=== PATIENT | female | born 1950 ===

== ENCOUNTER 2016-09-26 17:13 | Emergency (ER) | payer MEDICARE, MEDICAID ==
--- NOTE | 2016-09-26 17:17 | EDM.PDOC ---
ED HPI GENERAL MEDICAL PROBLEM - General Chief Complaint: General Stated Complaint: Cough Time Seen by Provider: 09/26/16 17:15 Source of Information: Reports: Patient, Family (), Old records ([facility] chart/EMR) History Limitations: Reports: No limitations - History of Present Illness INITIAL COMMENTS - FREE TEXT/NARRATIVE: The patient was brought to the emergency room via private automobile by her for evaluation of possible beginning bronchitis, which was diagnosed by her home health nurse shortly prior to evaluation in our facility. She apparently had some right lower lobe rales at time of the home health visit with report not given by nurse to this facility. The patient did take Spiriva and her Proventil inhaler at about 15:00 hours today but no nebulizer therapy today. The patient did have some mild choking when using her Advair inhaler on 09/19 with mild mostly clear productive cough since that time. She denies any fever or known exposure to infection and did get her influenza booster this past season. The patient denies any chest pain/pressure, heart flutter, dizziness, orthostasis, orthopnea, diaphoresis, paresthesias, recent decreased exercise tolerance, or any other anginal-type symptoms. No recent history of abdominal pain, heartburn, nausea, diarrhea, melena, gross hematochezia, or any food intolerance, including fatty foods, etc.. She denies any pain or discomfort Onset: today, sudden Onset Date: 09/19/16 Onset Time: 20:00 Duration: Chronic, Constant, Getting worse Location: Reports: other (No pain) Quality: Reports: Same as previous episode Improves with: Reports: None Worsens with: Reports: None Context: Reports: Other (As above) Associated Symptoms: Reports: cough, cough w sputum. Denies: confusion, chest pain, diaphoresis, fever/chills, headaches, loss of appetite, malaise, nausea/ vomiting, seizure, shortness of breath, syncope, weakness Treatments CLINICAL NURSE: Reports: Other medication(s) (As above). Denies: Aspirin, NSAIDS - Related Data Allergies Allergy/AdvReac Type Severity Reaction Status Date / Time Penicillins Allergy Rash Verified 09/26/16 18:13 Home Meds: Home Meds Tiotropium [Spiriva HandiHaler] 18 mcg INH DAILY@1200 02/04/15 [History] Albuterol [Proair HFA] 2 puff INH Q4HR PRN #1 inhaler 02/08/15 [Rx] Aspirin 81 mg PO BRK tab.chew 02/08/15 [Rx] Escitalopram [Lexapro] 20 mg PO DAILY #30 tablet 03/21/15 [Rx] Calcium Carbonate [Tums Extra Strength] 750 mg PO Q2HR PRN #1 bottle 08/17/15 [ Rx] Docusate Sodium/Sennosides [Senna Plus] 1 tab PO BID@0800,1800 #60 tablet [Rx] Gabapentin [Neurontin] 300 mg PO QID 12/27/15 [History] Magnesium Oxide [Magnesium] 400 mg PO DAILY #100 tablet 12/27/15 [Rx] Metoprolol Succinate [Toprol XL] 12.5 mg PO BID 12/27/15 [History] ClonazePAM [KlonoPIN] 1 mg PO BID 02/25/16 [History] Roflumilast [Daliresp] 500 mcg PO DAILY 02/25/16 [History] Albuterol/Ipratropium [DuoNeb 3.0-0.5 MG/3 ML] 3 ml NEB QID #60 ampule 09/26/16 [Rx] Dextromethorphan/guaiFENesin [Mucinex DM ER 600-30 MG] 1 tab PO BID #30 tab.er 09/26/16 [Rx] Fluticasone/Salmeterol [Advair Diskus 500-50] 1 puff INH BID 09/26/16 [History] Furosemide [Lasix] 20 mg PO DAILY #0 09/26/16 [Rx] Potassium Chloride 20 meq PO DAILY #20 tablet.er 09/26/16 [Rx] Sulfamethoxazole/Trimethoprim [Bactrim Ds Tablet] 1 each PO BIDMEALS #20 tablet 09/26/16 [Rx] Past Medical History HEENT History: Reports: Allergic rhinitis, Impaired vision, Other (see below). Denies: Glaucoma, Hard of hearing, Macular degeneration, Retinal detachment Other HEENT History: Patient wears glasses Cardiovascular History: Reports: Hypertension, Other (see below). Denies: Afib , Aneurysm, Arrhythmia, Blood clots/VTE/DVT, CAD, Heart Failure, Heart murmur, High cholesterol, WA, Syncope Other Cardiovascular History: Hypertension with previous episodes of hypotension , she does not know her cholesterol status Respiratory History: Reports: Bronchitis, recurrent, COPD, Pneumonia, recurrent , Pulmonary fibrosis, Sleep apnea, SOB, Other (see below). Denies: Intubation, previous, PE, Pneumothorax, TB Other Respiratory History: O2 dependent COPD and pulmonary fibrosis with patient using oxygen at 2 liter per N\C on a continuous basis and otherwise States puts oxygen at 3-4 liters per minute by nasal cannula with activity, including when she takes a shower. History of sleep apnea with patient noncompliant with her CPAP. Probable benign pulmonary nodules by CT scan March 2015 Gastrointestinal History: Reports: Chronic constipation, GERD, Hemorrhoids. Denies: Cholelithiasis, Chronic diarrhea, Colon polyp, Diverticulosis, Gastritis , Hepatitis, Hiatal hernia, Inflammatory bowel disease, Pancreatitis, PUD Genitourinary History: Reports: None. Denies: Chronic renal insuffiency, Renal calculus, STD, Urinary incontinence, UTI, recurrent RESPITE WORKER History: Reports: , Spontaneous . Denies: Endometriosis , Fibroids : 5 Para: 3 LMP (Approximate): Menopausal Other OB/BYN History: First trimester SAB with demise delivery secondary to nuchal cord, menopause in her 40s, otherwise Full term without complications during pregnancies or deliveries Musculoskeletal History: Reports: Arthritis, Back pain, chronic, Neck pain, chronic, Osteoarthritis, Osteoporosis. Denies: Fracture, Gout, RA, SLE Neurological History: Reports: Migraines, Neuropathy, peripheral, Other (see below). Denies: Cerebral aneurysms, Concussion, CVA, Head trauma, Seizure, TIA , Vertigo Other Neuro History: Migraine headaches in her younger years however no longer problematic Psychiatric History: Reports: Anxiety, Depression. Denies: Abuse, victim of, ADD, ADHD, Hallucinations, Psych Hospitalization(s), PTSD, Suicide attempt, Suicidal ideation Endocrine/Metabolic History: Reports: Multinodular thyroid, Osteoporosis, Other (see below). Denies: Diabetes, type I, Diabetes, type II, IDDM Other Endocrine/Metabolic History: multiple thyroid nodules with negative thyroid biopsy as below Hematologic History: Reports: Other (see below). Denies: Anemia, B12 deficiency , Blood transfusion(s), Iron deficiency Other Hematologic History: thrombocytopenia, leukopenia Immunologic History: Reports: None. Denies: AIDS, HIV, SLE Oncologic (Cancer) History: Reports: None. Denies: Basal cell carcinoma, Hodgkin's Lymphoma, Leukemia, Malignant melanoma, Non-Hodgkin's Lymphoma, Squamous cell carcinoma Dermatologic History: Reports: None. Denies: Eczema, Psoriasis - Infectious Disease History Infectious Disease History: Reports: Chicken pox. Denies: C-difficile, Measles , MRSA, Mumps, Pertussis (whooping cough), Rheumatic Fever, Rubella, Scarlet fever, Shingles, TB, VRE - Past Surgical History Head Surgeries/Procedures: Reports: None HEENT Surgical History: Reports: Adenoidectomy, Oral surgery, Tonsillectomy, Other (see below). Denies: Cataract surgery, Eye surgery, Laser surgery, LASIK , Myringotomy w tube(s), Naso-sinus surgery Other HEENT Surgeries/Procedures: Tonsillectomy and adenoidectomy at about age 9 , complete teeth extraction Cardiovascular Surgical History: Reports: None. Denies: Varicose, Vascular surgery Respiratory Surgical History: Reports: None. Denies: Lung Biopsies, Thoracentesis GI Surgical History: Reports: None. Denies: Appendectomy, Cholecystectomy, Colonoscopy, EGD, Hernia, abdominal, Hernia, inguinal, Hernia repair/other Female Surgical History: Reports: D&C, Dilitation & evacuation, Other (see below). Denies: Breast biopsy, section, Hysterectomy, Oophorectomy, Tubal ligation Other Female Surgeries/Procedures: D&C with SAB in 1977 Endocrine Surgical History: Reports: Thyroid biopsy, Other (see below) Other Endocrine Surgeries/Procedures: Negative thyroid biopsy in June 2015 Neurological Surgical History: Reports: None. Denies: C-Spine, Laminectomy, Spinal fusion Musculoskeletal Surgical History: Reports: None. Denies: Amputation, Carpal tunnel, Ganglion cyst, Hip replacement, ORIF, Shoulder surgery Oncologic Surgical History: Reports: None. Denies: Biopsy of breast Dermatological Surgical History: Reports: Skin biopsy, Other (see below) Other Dermatological Surgeries/Procedures: Negative skin biopsy of the right auricle in December 2015 - Past Imaging History Past Imaging History: Reports: CAT scan (CT scan of the chest on 03/31/15), PFT (PFTs with diffusion studies on 01/20/15), Ultrasound (Thyroid ultrasound on ) Social & Family History - Family History Cardiac: Reports: CAD, High cholesterol, Hypertension, Other (see below). Denies: WA Other Cardiac Family History: Son with PTCA/stent x6 in his 30s with no history of WA, etc., 2 sons with hyperlipidemia, son with hypertension Respiratory: Reports: COPD, Other (see below) Other Respiratory Family Hisory: Maternal uncles x5, paternal uncles x2, and maternal aunt with COPD and history of tobacco use Psychiatric: Reports: Anxiety, Depression, Other (see below) Other Psychiatric Family History: Anxiety depression disorder in mother Endocrine/Metabolic: Reports: Diabetes, type II, Hyperthyroidism, Hypothyroidism , Other (see below) Other Endocrine/Metabolic Family History: Mother with AODM, sister with hyperthyroidism and subsequent hypothyroidism secondary to high to I-131 therapy Oncologic: Reports: Lung, Metastatic, Other (see below) Other Oncologic Family History: Father with fatal lung cancer including cerebral metastases at age 39 with history of tobacco use - Tobacco Use Smoking Status *Q: Former Smoker Years of Tobacco use: 47 Packs/Tins Daily: 1.5 (With previous maximum use 2 packs per day) Used Tobacco, but Quit: Yes Month Tobacco Last Used: 02/19/15 Smoking Cessation Information Provided To Patient: No Second Hand Smoke Exposure: No Second Hand Smoke Education Provided: No - Caffeine Use Caffeine Use: Reports: Soda (2 sodas per day). Denies: Coffee, Energy drinks, Tea - Alcohol Use Alcohol Use History: Yes Days Per Week of Alcohol Use: 0 (No previous DWIs, problems with alcohol abuse, etc.) Number of Drinks Per Day: 1 (Occasional wine for holidays) Total Drinks Per Week: 0 Alcohol Use in Last Twelve Months: Yes Alcohol Use Frequency: Socially - Recreational Drug Use Recreational Drug Use: No Drug Use in Last 12 Months: No Recreational Drug Type: Denies: Amphetamines (Speed), Cocaine, Heroin, LSD (Acid ), Marijuana/Hashish, Methamphetamine, Morphine Recreational Drug Use Frequency: Daily - Living Situation & Occupation Living situation: Reports: (In 1977, second with 2 children from this marriage), (from first in about 1974, one son from that relationship), alone (She no longer lives with her secondary to finances) 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 Denies: fever, chills, weakness, fatigue , night sweats, diaphoresis, decreased appetite, weight loss, weight gain HEENT: Reports: Glasses, Rhinitis. Denies: Dental pain, Ear pain, Eye pain, Hearing loss, Sinus problem, Throat pain, Throat swelling, Vertigo, Vision change Respiratory: Reports: Cough, Sputum. Denies: Shortness of Breath, Wheezing, Pleuritic Chest Pain, Hemoptysis Cardiovascular: Denies: Chest pain, Blood pressure problem, Claudication, Dyspnea on exertion, Edema, Lightheadedness, Orthopnea, Palpitations, PND, Syncope Endocrine: Reports: no symptoms. Denies: fatigue GI/Abdominal: Reports: No symptoms. Denies: Abdominal pain, Anorexia, Black stool, Bloody stool, Constipation, Diarrhea, Decreased appetite, Difficulty swallowing, Distension, Flatus, Hematochezia, Melena, Nausea, Vomiting : Reports: no symptoms. Denies: discharge, dysuria, flank pain, frequency, hematuria, incontinence, pain, urgency, urinary retention Musculoskeletal: Reports: no symptoms. Denies: neck pain, shoulder pain, arm pain, back pain, leg pain, joint pain, joint swelling Skin: Reports: no symptoms. Denies: diaphoresis, rash Neurological: Reports: No Symptoms. Denies: Confusion, Dizziness, Headache, Numbness, Paresthesia, Tingling, Weakness Psychiatric: Reports: No symptoms. Denies: Agitation, Anxiety, Confusion, Depression, Hallucinations Hematologic/Lymphatic: Reports: no symptoms Immunologic: Reports: no symptoms ED EXAM, GENERAL - Physical Exam Exam: See Below Exam Limited By: No limitations General Appearance: alert, WD/WN, no apparent distress Eye Exam: bilateral eye: EOMI, normal inspection (No nystagmus), PERRL Ears: normal canal, hearing grossly normal, normal TMs, other (3-4 mm skin tag over the superior aspect of the right auricle with no evidence of malignancy or infection) Throat/Mouth: Normal lips, Normal gums, Normal oropharynx, Normal voice, No airway compromise. No: Normal teeth (Absent dentition with complete upper dentures), Dysphagia, Perioral cyanosis Head: atraumatic, normocephalic. No: facial swelling, facial tenderness, sinus tenderness Neck: normal inspection, supple, non-tender, full range of motion. No: lymphadenopathy (L), lymphadenopathy (R), thyromegaly Respiratory/Chest: no respiratory distress, lungs clear, normal breath sounds, no accessory muscle use, chest non-tender. No: pleural rub, retractions Cardiovascular: normal peripheral pulses, regular rate, rhythm, no edema, no gallop, no JVD, no murmur, no rub. No: gallop/S3, gallop/S4, friction rub Peripheral Pulses: 4+: radial (L), radial (R) GI/Abdominal: normal bowel sounds, soft, non tender, no organomegaly, no distention, no abnormal bruit, no mass, other (obese). No: guarding (Female) Exam: Deferred Rectal (Female) Exam: Deferred Back Exam: normal inspection, full range of motion. No: CVA tenderness (L), CVA tenderness (R), muscle spasm Extremities: normal inspection, normal range of motion, non-tender, no pedal edema, normal capillary refill. No: Marietta's Sign Neurological: alert, oriented, CN II-XII intact, normal cognition, normal gait, no motor/sensory deficits Psychiatric: normal affect, normal mood Skin Exam: Warm, Dry, Intact, Normal color, No rash, Tattoo(s) (Multiple). No: Diaphoretic, Rash, Wound/incision Lymphatic: no adenopathy Course - Vital Signs Last Recorded V/S: Last Vital Signs Temp 36.4 C 09/26/16 17:19 Pulse 90 09/26/16 17:19 Resp 18 09/26/16 17:19 BP 140/82 09/26/16 17:19 Pulse Ox 97 09/26/16 17:19 Vital Signs - 24 hr 09/26/16 17:19 Temperature [ 36.4 C Oral] Pulse, 90 Peripheral [ Right Pulse Oximetry] Respiratory 18 Rate Blood Pressure 140/82 [Right Upper Arm] O2 Sat by Pulse 97 Oximetry - Orders/Labs/Meds Orders: Active Orders 24 hr Category Date Time Status Oxygen Therapy, ED [RC] CONTINUOUS Care 09/26/16 17:20 Active RT Aerosol Therapy [RC] ASDIRECTED Care 09/26/16 17:20 Active Chest 2V [CR] Urgent Exams 09/26/16 17:18 Taken CULTURE BLOOD [BC] Stat Lab 09/26/16 17:30 Received CULTURE BLOOD [BC] Stat Lab 09/26/16 17:30 Received CULTURE SPUTUM + SMEAR [RM] Routine Lab 09/26/16 17:30 Received Blood Culture x2 Reflex Set [OM.PC] Urgent Oth 09/26/16 17:18 Ordered Labs: Laboratory Tests 09/26/16 09/26/16 Range/Units 17:30 17:30 WBC 4.6 (4.0-10.2) K/uL RBC 4.12 (3.77-5.09) M/uL Hgb 10.4 L (11.7-15.5) g/dL Hct 36.2 (34.0-46.0) % MCV 87.9 D (84.0-98.0) fL MCH 25.2 L (28.2-33.3) pg MCHC 28.7 L (31.7-36.0) g/dL RDW 14.0 (11.2-14.1) % Plt Count 210 D (150-350) K/uL Neut % (Auto) 63.1 (45.0-80.0) % Lymph % (Auto) 27.2 (10.0-50.0) % Churchill % (Auto) 8.6 (2.0-14.0) % Eos % (Auto) 1.1 (0.0-5.0) % Baso % (Auto) 0.0 (0.0-2.0) % Neut # (Auto) 2.88 (1.40-7.00) K/uL Lymph # (Auto) 1.24 (0.50-3.50) K/uL Churchill # (Auto) 0.39 (0.00-1.00) K/uL Eos # (Auto) 0.05 (0.00-0.50) K/uL Baso # (Auto) 0.00 (0.00-0.20) K/uL Sodium 141 (136-145) mmol/L Potassium 3.4 L (3.5-5.1) mmol/L Chloride 98 (98-107) mmol/L Carbon Dioxide 35.8 H (21.0-32.0) mmol/L BUN 12 (7-18) mg/dL Creatinine 0.70 (0.51-1.17) mg/dL Est Cr Clr Drug Dosing 63.37 mL/min Estimated GFR (MDRD) > 60 mL/min Glucose 134 H (74-106) mg/dL Calcium 9.1 (8.5-10.1) mg/dL Total Bilirubin 0.4 (0.2-1.0) mg/dL AST 28 (15-37) U/L ALT 27 (12-78) U/L Alkaline Phosphatase 105 (46-116) IU/L Creatine Kinase 58 (26-308) U/L Creatine Kinase Index 1.9 (0.0-2.5) % CK-MB (CK-2) 1.10 (0.00-3.60) ng/mL Troponin I 0.000 (0.000-0.056) ng/mL [id number]-Gmunygltvli Pept 43 (0-125) pg/mL Total Protein 7.7 (6.4-8.2) g/dL Albumin 3.7 (3.4-5.0) g/dL Blood cultures x2 collected Sputum specimen collected for culture and sensitivity Microbiology 09/26/16 17:30 Influenza Type A Antigen Screen - Final Nasal Aspirate, Left NEGATIVE INFLUENZA A VIRUS AG Influenza Type B Antigen Screen - Final NEGATIVE INFLUENZA B VIRUS AG Meds: Medications Discontinued Medications Generic Name Dose Route Start Last Admin Trade Name Freq PRN Reason Stop Dose Admin Albuterol/Ipratropium 3 ml 09/26/16 17:20 09/26/16 17:25 Duoneb 3.0-0.5 Mg/3 Ml NEB 09/26/16 17:21 3 ml ONETIME ONE Administration Budesonide 0.5 mg 09/26/16 17:20 09/26/16 17:27 Pulmicort NEB 09/26/16 17:21 0.5 mg ONETIME ONE Administration Ceftriaxone Sodium 1 gm 09/26/16 17:57 09/26/16 18:27 Rocephin IM 09/26/16 17:58 1 gm ONETIME ONE Administration Guaifenesin/Dextromethorphan 1 tab 09/27/16 18:11 Mucinex Dm Er 600-30 Mg PO 09/27/16 18:12 ONETIME ONE Guaifenesin/Dextromethorphan 1 tab 09/26/16 18:17 09/26/16 18:27 Mucinex Dm Er 600-30 Mg PO 09/26/16 18:18 1 tab ONETIME ONE Administration Lidocaine HCl 5 ml 09/26/16 17:57 09/26/16 18:27 Xylocaine-Mpf 1% INJECT 09/26/16 17:58 5 ml ONETIME ONE Administration Methylprednisolone Acetate 80 mg 09/26/16 18:36 09/26/16 18:40 Depo-Medrol IM 09/26/16 18:37 80 mg ONETIME ONE Administration Potassium Chloride 20 meq 09/26/16 18:12 09/26/16 18:27 Klor-Con 10 PO 09/26/16 18:13 20 meq ONETIME ONE Administration Trimethoprim/Sulfamethoxazole 1 tab 09/26/16 17:57 09/26/16 18:27 Septra Ds PO 09/26/16 17:58 1 tab ONETIME ONE Administration - Radiology Interpretation Free Text/Narrative:: Chest x-ray, PA and lateral, shows evidence of moderate to severe COPD with probable additional pulmonary fibrosis and additional pulmonary hypertension. Some mild basilar atelectasis but no true pulmonary infiltrates, cardiomegaly, CHF, pneumothorax, etc.. Moderate osteoarthritic and osteoporotic changes in the thoracic spine Departure - Departure Time of Disposition: 19:00 Disposition: Home, Self-Care 01 Condition: good Clinical Impression: Mixed anxiety and depressive disorder, Multiple thyroid nodules, Bronchitis, Hypokalemia COPD (chronic obstructive pulmonary disease) Qualifiers: COPD type: unspecified COPD Qualified Code(s): J44.9 - Chronic obstructive pulmonary disease, unspecified Osteoarthritis Qualifiers: Osteoarthritis location: multiple joints Osteoarthritis type: primary Qualified Code(s): M15.0 - Primary generalized (osteo)arthritis Hypertension Qualifiers: Hypertension type: essential hypertension Qualified Code(s): I10 - Essential ( primary) hypertension Prescriptions: Dextromethorphan/guaiFENesin [Mucinex DM ER 600-30 MG] 1 tab PO BID #30 tab.er Potassium Chloride 20 meq PO DAILY #20 tablet.er Sulfamethoxazole/Trimethoprim [Bactrim Ds Tablet] 1 each PO BIDMEALS #20 tablet Instructions: Acute Bronchitis, [id number] Referrals: Eugene Willett PA [Primary Care Provider] - Forms: ED Department Discharge Additional Instructions: 1. Followup with your regular provider in 10-14 days as directed for reevaluation and recommended CBC, basic metabolic panel, and chest x-ray. 2. Tylenol 650 mg by mouth every 4 hours and/or OTC ibuprofen 2-3 tabs by mouth every 6 hours with food as directed./needed. 3. Strict compliance with your nebulizer therapy and reinitiate your CPAP therapy FLORA as discussed. 4. Discuss possible repeat thyroid ultrasound with your regular provider at followup, since this is behind schedule 5. Consider workup for your anemia, if this persists at followup - Problem List & Annotations (1) Bronchitis SNOMED Code(s): 79646320 Code(s): J40 - BRONCHITIS, NOT SPECIFIED ACUTE OR CHRONIC Status: Acute Priority: High Onset Date: ~09/19/16 Annotation/Comment:: IM Rocephin and oral Bactrim DS given in the emergency room. Close followup by regular providers. Sputum specimen obtained for culture and sensitivity with blood cultures x2 also collected (2) COPD (chronic obstructive pulmonary disease) SNOMED Code(s): 04826592 Code(s): J44.9 - CHRONIC OBSTRUCTIVE PULMONARY DISEASE, UNSPECIFIED Status : Acute Priority: High Annotation/Comment:: COPD exacerbation with triple nebulizer treatment given in the emergency room with overall good results. Patient was strongly encouraged to remain compliant with her nebulizer therapy. IM Depo-Medrol also given. She continues to be noncompliant with her CPAP therapy, which was once again encouraged. No chest pain or anginal complaints. Qualifiers: COPD type: unspecified COPD Qualified Code(s): J44.9 - Chronic obstructive pulmonary disease, unspecified (3) Anemia SNOMED Code(s): 045012166 Code(s): D64.9 - ANEMIA, UNSPECIFIED Status: Acute Priority: Medium Onset Date: ~09/26/16 Annotation/Comment:: Mild anemia today with previous history of leukopenia and thrombocytopenia. Close followup by regular provider as per discharge instructions with consideration of iron studies, vitamin B 12 level, folic acid level, etc. with possible referral for bone marrow needle aspiration biopsy, etc. depending on her clinical course Qualifiers: Anemia type: unspecified type Qualified Code(s): D64.9 - Anemia, unspecified (4) Multiple thyroid nodules SNOMED Code(s): 819733446 Code(s): E04.2 - NONTOXIC MULTINODULAR GOITER Status: Acute Priority: Medium Annotation/Comment:: Patient has yet to followup for previously recommended repeat thyroid ultrasound with a negative previous thyroid biopsy (5) Hypertension SNOMED Code(s): 88330134 Code(s): I10 - ESSENTIAL (PRIMARY) HYPERTENSION Status: Chronic Priority : Medium Annotation/Comment:: Blood pressures under good control in the emergency room. Continue to observe closely by her regular provider Qualifiers: Hypertension type: essential hypertension Qualified Code(s): I10 - Essential (primary) hypertension (6) Mixed anxiety and depressive disorder SNOMED Code(s): 514580687 Code(s): F41.8 - OTHER SPECIFIED ANXIETY DISORDERS Status: Chronic Priority: Medium Annotation/Comment:: Stable by history. Continue to observe closely by her regular provider (7) Osteoarthritis SNOMED Code(s): 363778737 Code(s): M19.90 - UNSPECIFIED OSTEOARTHRITIS, UNSPECIFIED SITE Status: Chronic Priority: Medium Annotation/Comment:: Stable by history Qualifiers: Osteoarthritis location: multiple joints Osteoarthritis type: primary Qualified Code(s): M15.0 - Primary generalized (osteo)arthritis (8) Hypokalemia SNOMED Code(s): 56736652 Code(s): E87.6 - HYPOKALEMIA Status: Acute Priority: Medium Onset Date : 09/26/16 Annotation/Comment:: Patient has been using her Lasix on a daily basis recently rather than when necessary. Potassium chloride given in the emergency room with initiation of this therapy and her Lasix on a regular basis - Problem List Review Problem List Initiated/Reviewed/Updated: Yes - My Orders Last 24 Hours: My Active Orders 09/26/16 17:18 Chest 2V [CR] Urgent Blood Culture x2 Reflex Set [OM.PC] Urgent 09/26/16 17:20 Oxygen Therapy, ED [RC] CONTINUOUS RT Aerosol Therapy [RC] ASDIRECTED 09/26/16 17:30 CULTURE BLOOD [BC] Stat CULTURE BLOOD [BC] Stat CULTURE SPUTUM + SMEAR [RM] Routine - Assessment/Plan Last 24 Hours: My Active Orders 09/26/16 17:18 Chest 2V [CR] Urgent Blood Culture x2 Reflex Set [OM.PC] Urgent 09/26/16 17:20 Oxygen Therapy, ED [RC] CONTINUOUS RT Aerosol Therapy [RC] ASDIRECTED 09/26/16 17:30 CULTURE BLOOD [BC] Stat CULTURE BLOOD [BC] Stat CULTURE SPUTUM + SMEAR [RM] Routine Assessment:: As above Plan: As above. Extensive precautions were given to the patient and her , who are in agreement with the treatment plan. See Patient Instructions for further treatment and plan.
[2016-09-26 17:20] VITALS: BP 140/82
[2016-09-26] MEDS ORDERED: Albuterol/Ipratropium 3.0-0.5 MG/3 ML Neb Soln NEB ONE (17:20)
[2016-09-26] MEDS ORDERED: Budesonide 0.5 MG/2 ML Neb Susp NEB ONE (17:20)
[2016-09-26] MEDS ORDERED: Sulfamethoxazole/Trimethoprim 800-160 MG Tab PO ONE (17:57)
[2016-09-26] MEDS ORDERED: cefTRIAXone 1 GM Vial IM ONE (17:57)
[2016-09-26 18:10] LABS: CHLORIDE,CL 98 mmol/L (98-107); SODIUM,NA 141 mmol/L (136-145)
[2016-09-26] MEDS ORDERED: Potassium Chloride 10 MEQ Tab.ER PO ONE (18:12)
[2016-09-26] MEDS ORDERED: Dextromethorphan/guaiFENesin 600-30 MG Tab.ER PO ONE (18:17)
[2016-09-26] MEDS ORDERED: methylPREDNISolone Acetate 80 MG/ML SDV IM ONE (18:36)
[2016-09-27] MEDS ORDERED: Dextromethorphan/guaiFENesin 600-30 MG Tab.ER PO ONE (18:11)
== END 2016-09-26 19:00 | disposition home or self-care (01) ==
LOC: LL.ED 17:13
DX: J44.9 Chronic obstructive pulmonary disease, unspecified (principal); J40 Bronchitis, not specified as acute or chronic; E04.2 Nontoxic multinodular goiter; E87.6 Hypokalemia; F41.8 Other specified anxiety disorders; M15.0 Primary generalized (osteo)arthritis; I10 Essential (primary) hypertension; K21.9 Gastro-esophageal reflux disease without esophagitis; Z87.891 Personal history of nicotine dependence; Z79.899 Other long term (current) drug therapy; Z79.82 Long term (current) use of aspirin; Z88.0 Allergy status to penicillin
CPT/HCPCS: 36415; 71020; 80053; 82550; 82553; 83880; 84484; 85025; 87040; 87070; 87205; 87804; 94640; 94664; 96372; 99284; A9270; J0696; J1040

== ENCOUNTER 2016-11-18 17:02 | Emergency (ER) | payer MEDICARE, MEDICAID ==
[2016-11-18 17:12] VITALS: BP 110/76
--- NOTE | 2016-11-18 17:29 | EDM.PDOC ---
ED HPI GENERAL MEDICAL PROBLEM - General Chief Complaint: Upper Extremity Injury/Pain Stated Complaint: L) hand swelling and pain Time Seen by Provider: 11/18/16 17:15 Source of Information: Reports: Patient History Limitations: Reports: No Limitations - History of Present Illness INITIAL COMMENTS - FREE TEXT/NARRATIVE: Patient is a 66-year-old female well-known to myself history of COPD severe is on oxygen continuous been complaining of bilateral hand pain and swelling right was worse than left but she's been going to a chiropractor and he's been working on her hand and now she has range of motion in her hands and less swelling the right is swollen and tender to palpation with decreased range of motion tinea denies any heart disease but admits to falling and hitting her wrist about 3 days ago since then the swelling and the tenderness has increased Onset: Gradual Duration: Week(s):, Getting Worse Location: Reports: Upper Extremity, Left Quality: Reports: Ache, Throbbing Severity: Moderate Improves with: Reports: None Worsens with: Reports: None Context: Reports: Trauma Treatments 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 Other Treatments CEILING CLEANER: [t on O2 at home and for transport for COPD Left Wrist Pain Score (Numeric/FACES): 7 - Related Data Allergies Allergy/AdvReac Type Severity Reaction Status Date / Time Penicillins Allergy Rash Verified 11/18/16 17:38 Home Meds: Home Meds Tiotropium [Spiriva HandiHaler] 18 mcg INH DAILY@1200 02/04/15 [History] Albuterol [Proair HFA] 2 puff INH Q4HR PRN #1 inhaler 02/08/15 [Rx] Aspirin 81 mg PO BRK tab.chew 02/08/15 [Rx] Escitalopram [Lexapro] 20 mg PO DAILY #30 tablet 03/21/15 [Rx] Calcium Carbonate [Tums Extra Strength] 750 mg PO Q2HR PRN #1 bottle 08/17/15 [ Rx] Docusate Sodium/Sennosides [Senna Plus] 1 tab PO BID@0800,1800 #60 tablet [Rx] Gabapentin [Neurontin] 300 mg PO QID 12/27/15 [History] Magnesium Oxide [Magnesium] 400 mg PO DAILY #100 tablet 12/27/15 [Rx] Metoprolol Succinate [Toprol XL] 12.5 mg PO BID 12/27/15 [History] ClonazePAM [KlonoPIN] 1 mg PO BID 02/25/16 [History] Roflumilast [Daliresp] 500 mcg PO DAILY 02/25/16 [History] Albuterol/Ipratropium [DuoNeb 3.0-0.5 MG/3 ML] 3 ml NEB QID #60 ampule 09/26/16 [Rx] Dextromethorphan/guaiFENesin [Mucinex DM ER 600-30 MG] 1 tab PO BID #30 tab.er 09/26/16 [Rx] Fluticasone/Salmeterol [Advair Diskus 500-50] 1 puff INH BID 09/26/16 [History] Furosemide [Lasix] 20 mg PO DAILY #0 09/26/16 [Rx] Potassium Chloride 20 meq PO DAILY #20 tablet.er 09/26/16 [Rx] Sulfamethoxazole/Trimethoprim [Bactrim Ds Tablet] 1 each PO BIDMEALS #20 tablet 09/26/16 [Rx] Past Medical History HEENT History: Reports: Allergic Rhinitis, Impaired Vision, Other (See Below) Other HEENT History: Patient wears glasses Cardiovascular History: Reports: Hypertension, Other (See Below) Other Cardiovascular History: Hypertension with previous episodes of hypotension , she does not know her cholesterol status Respiratory History: Reports: Bronchitis, Recurrent, COPD, Pneumonia, Recurrent , Pulmonary Fibrosis, Sleep Apnea, SOB, Other (See Below) Other Respiratory History: O2 dependent COPD and pulmonary fibrosis with patient using oxygen at 2 liter per N\C on a continuous basis and otherwise States puts oxygen at 3-4 liters per minute by nasal cannula with activity, including when she takes a shower. History of sleep apnea with patient noncompliant with her CPAP. Probable benign pulmonary nodules by CT scan March 2015 Gastrointestinal History: Reports: Chronic Constipation, GERD, Hemorrhoids Genitourinary History: Reports: None. Denies: Chronic Renal Insuffiency, Renal Calculus, STD, Urinary Incontinence, UTI, Recurrent [employer] History: Reports: , Spontaneous Other OB/BYN History: First trimester SAB with demise delivery secondary to nuchal cord, menopause in her 40s, otherwise Full term without complications during pregnancies or deliveries Musculoskeletal History: Reports: Arthritis, Back Pain, Chronic, Neck Pain, Chronic, Osteoarthritis, Osteoporosis Neurological History: Reports: Migraines, Neuropathy, Peripheral, Other (See Below) Other Neuro History: Migraine headaches in her younger years however no longer problematic Psychiatric History: Reports: Anxiety, Depression Other Psychiatric History: mixed anxiety depression disorder Endocrine/Metabolic History: Reports: Multinodular Thyroid, Osteoporosis, Other (See Below) Other Endocrine/Metabolic History: multiple thyroid nodules with negative thyroid biopsy as below Hematologic History: Reports: Other (See Below) Other Hematologic History: thrombocytopenia, leukopenia Immunologic History: Reports: None Oncologic (Cancer) History: Reports: None Dermatologic History: Reports: None. Denies: Eczema, Psoriasis - Infectious Disease History Infectious Disease History: Reports: Chicken Pox - Past Surgical History Head Surgeries/Procedures: Reports: None HEENT Surgical History: Reports: Adenoidectomy, Oral Surgery, Tonsillectomy, Other (See Below) Female Surgical History: Reports: D&C, Dilitation & Evacuation, Other (See Below) Endocrine Surgical History: Reports: Thyroid Biopsy, Other (See Below) Oncologic Surgical History: Reports: None Dermatological Surgical History: Reports: Skin Biopsy, Other (See Below) - Past Imaging History Past Imaging History: Reports: CAT Scan, PFT, Ultrasound Social & Family History - Family History Cardiac: Reports: CAD, High Cholesterol, Hypertension, Other (See Below) Other Cardiac Family History: Son with PTCA/stent x6 in his 30s with no history of SC, etc., 2 sons with hyperlipidemia, son with hypertension Respiratory: Reports: COPD, Other (See Below) Other Respiratory Family Hisory: Maternal uncles x5, paternal uncles x2, and maternal aunt with COPD and history of tobacco use Psychiatric: Reports: Anxiety, Depression, Other (See Below) Other Psychiatric Family History: Anxiety depression disorder in mother Endocrine/Metabolic: Reports: Diabetes, type II, Hyperthyroidism, Hypothyroidism , Other (See Below) Other Endocrine/Metabolic Family History: Mother with AODM, sister with hyperthyroidism and subsequent hypothyroidism secondary to high to I-131 therapy Oncologic: Reports: Lung, Metastatic, Other (See Below) Other Oncologic Family History: Father with fatal lung cancer including cerebral metastases at age 39 with history of tobacco use - Tobacco Use Smoking Status *Q: Former Smoker Years of Tobacco use: 47 Packs/Tins Daily: 1.5 Used Tobacco, but Quit: Yes Month Tobacco Last Used: feb 09, 2015 Second Hand Smoke Exposure: No - Caffeine Use Caffeine Use: Reports: Soda - Alcohol Use Days Per Week of Alcohol Use: 0 Number of Drinks Per Day: 1 (Occasional wine for holidays) Total Drinks Per Week: 0 - Recreational Drug Use Recreational Drug Use: No Drug Use in Last 12 Months: No Recreational Drug Type: Denies: Amphetamines (Speed), Cocaine, Heroin, LSD (Acid ), Marijuana/Hashish, Methamphetamine, Morphine Recreational Drug Use Frequency: Daily - Living Situation & Occupation Living situation: Reports: , , Alone Occupation: Disabled Review of Systems - Review of Systems Review Of Systems: See Below Constitutional: Reports: No Symptoms Eyes: Reports: No Symptoms Ears: Reports: No Symptoms Nose: Reports: No Symptoms Mouth/Throat: Reports: No Symptoms Respiratory: Reports: Shortness of Breath Cardiovascular: Reports: No Symptoms GI/Abdominal: Reports: No Symptoms Genitourinary: Reports: No Symptoms Musculoskeletal: Reports: Joint Pain, Joint Swelling Skin: Reports: No Symptoms Neurological: Reports: Confusion Psychiatric: Reports: No Symptoms ED EXAM, GENERAL - Physical Exam Exam: See Below Exam Limited By: No Limitations General Appearance: Alert, WD/WN Ears: Normal External Exam, Normal Canal, Hearing Grossly Normal, Normal TMs Nose: Normal Inspection, Normal Mucosa, No Blood Throat/Mouth: Normal Inspection, Normal Lips, Normal Teeth, Normal Gums, Normal Oropharynx, Normal Voice, No Airway Compromise Head: Atraumatic, Normocephalic Neck: Normal Inspection, Supple, Non-Tender, Full Range of Motion Respiratory/Chest: Lungs Clear Cardiovascular: Normal Peripheral Pulses, Regular Rate, Rhythm GI/Abdominal: Normal Bowel Sounds, Soft, Non-Tender, No Organomegaly, No Distention, No Abnormal Bruit, No Mass (Female) Exam: Normal External Exam, Normal Speculum Exam, Normal Bimanual Exam Back Exam: Normal Inspection, Full Range of Motion, NT Extremities: Joint Swelling, Arm Pain Neurological: Alert, Oriented, CN II-XII Intact, Normal Cognition, Normal Gait, Normal Reflexes, No Motor/Sensory Deficits Psychiatric: Normal Affect, Normal Mood Course - Vital Signs Last Recorded V/S: Last Vital Signs Temp 98.1 F 11/18/16 17:10 Pulse 85 11/18/16 17:10 Resp 16 11/18/16 17:10 BP 110/76 11/18/16 17:10 Pulse Ox 100 11/18/16 17:10 - Orders/Labs/Meds Orders: Active Orders 24 hr Category Date Time Status Wrist Comp Min 3V Lt [CR] Stat Exams 11/18/16 17:21 Ordered BASIC METABOLIC PANEL,BMP [CHEM] Stat Lab 11/18/16 17:19 Ordered C-REACTIVE PROTEIN [CHEM] Stat Lab 11/18/16 17:19 Ordered URIC ACID [CHEM] Stat Lab 11/18/16 17:19 Ordered Departure - Departure Time of Disposition: 17:58 Disposition: Home, Self-Care 01 Condition: fair Clinical Impression: Wrist pain, left - Discharge Information Forms: ED Department Discharge - Problem List Review Problem List Initiated/Reviewed/Updated: Yes - My Orders Last 24 Hours: My Active Orders 11/18/16 17:19 BASIC METABOLIC PANEL,BMP [CHEM] Stat C-REACTIVE PROTEIN [CHEM] Stat URIC ACID [CHEM] Stat 11/18/16 17:21 Wrist Comp Min 3V Lt [CR] Stat - Assessment/Plan Last 24 Hours: My Active Orders 11/18/16 17:19 BASIC METABOLIC PANEL,BMP [CHEM] Stat C-REACTIVE PROTEIN [CHEM] Stat URIC ACID [CHEM] Stat 11/18/16 17:21 Wrist Comp Min 3V Lt [CR] Stat Assessment:: (Sprain Plan: Patient placed on prednisone 10 mg twice a day for 10 days I will give her some prednisone here to take home she is to follow-up with her primary in the next week or so if not better
[2016-11-18 17:46] LABS: CHLORIDE,CL 101 mmol/L (98-107); SODIUM,NA 141 mmol/L (136-145)
[2016-11-18] MEDS ORDERED: Calcium Carbonate 750 MG Tab.Chew PO PRN (17:55)
[2016-11-18] MEDS ORDERED: Albuterol 8 GM Inhaler INH PRN (17:55)
[2016-11-18] MEDS: predniSONE 20 MG Tab PO SCH ×2 (18:00→18:03)
[2016-11-18] MEDS ORDERED: Aspirin 81 MG Tab.Chew PO SCH (18:00)
[2016-11-18] MEDS ORDERED: Metoprolol Succinate 25 MG Tab.ER PO SCH (18:00)
[2016-11-18] MEDS ORDERED: Non-Formulary Medication 1 Each (Fluticasone/Salmeterol [Advair Diskus 500-50] 1 PUFF) INH SCH (18:00)
[2016-11-18] MEDS ORDERED: Dextromethorphan/guaiFENesin 600-30 MG Tab.ER PO SCH (18:00)
[2016-11-18] MEDS ORDERED: Non-Formulary Medication 1 Each (Clonazepam [Klonopin] 1 MG) PO SCH (18:00)
[2016-11-18] MEDS ORDERED: Gabapentin 300 MG Cap PO SCH (20:00)
[2016-11-18] MEDS ORDERED: Albuterol/Ipratropium 3.0-0.5 MG/3 ML Neb Soln NEB SCH (20:00)
[2016-11-19] MEDS ORDERED: Sulfamethoxazole/Trimethoprim 800-160 MG Tab PO SCH (07:30)
[2016-11-19] MEDS ORDERED: Non-Formulary Medication 1 Each (Potassium Chloride [Potassium Chloride] 20 MEQ) PO SCH (08:00)
[2016-11-19] MEDS ORDERED: Escitalopram 20 MG Tab PO SCH (08:00)
[2016-11-19] MEDS ORDERED: Non-Formulary Medication 1 Each (Roflumilast [Daliresp] 500 MCG) PO SCH (08:00)
[2016-11-19] MEDS ORDERED: Magnesium Oxide 400 MG Tab PO SCH (08:00)
[2016-11-19] MEDS ORDERED: Furosemide 20 MG Tab PO SCH (08:00)
[2016-11-19] MEDS ORDERED: Tiotropium Inhaler 18 MCG Inhalation Powder Cap Kit of 5 INH SCH (12:00)
== END 2016-11-18 18:14 | disposition home or self-care (01) ==
LOC: LL.ED 17:02
DX: M25.532 Pain in left wrist (principal); J44.9 Chronic obstructive pulmonary disease, unspecified; I10 Essential (primary) hypertension; K21.9 Gastro-esophageal reflux disease without esophagitis; G43.909 Migraine, unspecified, not intractable, without status migrainosus; F41.9 Anxiety disorder, unspecified; F32.9 Major depressive disorder, single episode, unspecified; Z87.891 Personal history of nicotine dependence; Z88.0 Allergy status to penicillin; Z79.82 Long term (current) use of aspirin; Z79.899 Other long term (current) drug therapy; Z87.01 Personal history of pneumonia (recurrent); Z98.890 Other specified postprocedural states
CPT/HCPCS: 36415; 73110-LT; 80048; 84550; 86140; 99283; 99284; A9270-GY

== ENCOUNTER 2021-04-05 19:13 | Emergency (ER) | payer MEDICARE, MEDICAID ==
[2021-04-05] MEDS ORDERED: Sodium Chloride 0.9% 10 ML Syringe FLUSH PRN (19:25)
[2021-04-05] MEDS ORDERED: methylPREDNISolone Sodium Succinate 125 MG/2 ML SDV IVPUSH ONE ×2 (19:26→21:09)
[2021-04-05] MEDS ORDERED: Budesonide 0.5 MG/2 ML Neb Susp NEB ONE (19:26)
[2021-04-05] MEDS ORDERED: Albuterol/Ipratropium 3.0-0.5 MG/3 ML Neb Soln NEB ONE (19:26)
[2021-04-05] MEDS ORDERED: Budesonide 0.5 MG/2 ML Neb Susp ONE (19:39)
[2021-04-05] MEDS ORDERED: Albuterol 0.083% 2.5 MG/3 ML Neb Soln NEB ONE ×2 (19:47→21:43)
[2021-04-05] MEDS ORDERED: cefTRIAXone 2 GM Vial IVPUSH STA (19:50)
[2021-04-05] MEDS ORDERED: Azithromycin 500 MG in Sodium Chloride 0.9% 250 ML IV ONE (19:50)
[2021-04-05 19:55] LABS: O2 DELIVERY DEVICE NASAL CANNULA
[2021-04-05 19:59] LABS: PCO2 VENOUS 100 mmHG (41-51); PH,VENOUS 7.14 (7.31-7.41)
[2021-04-05 20:06] LABS: PO2 VENOUS 39 mmHG
[2021-04-05 20:07] LABS: BASE EXCESS VENOUS 2 mmol/L ((-2)-3); BICARBONATE,VENOUS 34 mmol/L (23-28); O2 SATURATION VENOUS 53 %
[2021-04-05] MEDS ORDERED: Succinylcholine 200 MG/10 ML MDV IV STA (20:14)
[2021-04-05] MEDS ORDERED: Etomidate 2 MG/ML 10 ML SDV IVPUSH ONE (20:14)
[2021-04-05] MEDS ORDERED: fentaNYL 100 MCG/2 ML SDV IVPUSH ONE ×3 (20:14→22:44)
[2021-04-05] MEDS ORDERED: Propofol 200 MG/20 ML SDV IVPUSH ONE (20:15)
[2021-04-05 20:19] LABS: CHLORIDE,CL 100 mmol/L (98-107); SODIUM,NA 136 mmol/L (136-145)
[2021-04-05 20:20] LABS: ANION GAP 8.2 meq/L (7-15)
[2021-04-05] MEDS ORDERED: Lactated Ringers 1,000 ML IV ONE ×3 (20:34→22:38)
[2021-04-05 20:48] LABS: O2 DELIVERY DEVICE BIPAP
--- NOTE | 2021-04-05 20:54 | EDM.PDOC ---
ED HPI GENERAL MEDICAL PROBLEM - General Chief Complaint: General Stated Complaint: COPD Time Seen by Provider: 04/05/21 19:13 Source of Information: Reports: Patient, EMS, Family History Limitations: Reports: Altered Mental Status, Respiratory Distress - History of Present Illness INITIAL COMMENTS - FREE TEXT/NARRATIVE: Patient comes emergency department today by home from ambulance with concerns of severe shortness of breath. Primarily the HPI is obtained from EMS as well as the family as the patient is obtunded upon arrival. This patient has a history of COPD. She typically does not like to take her daily nebulizers as she does not like the way it makes her feel. She has missed her daily controllers for the past couple of weeks. Over the past 3 days she has had increasing shortness of breath. She is quite tachypneic over the past couple of days. Eventually her was able to talk her into calling the ambulance. Upon the ambulance arrival the patient was quite agitated and anxious. She was somewhat hypoxic with her sats in the low 90s. She was kind of agitated on the bed. IV was established in route. Upon arrival the patient alerts to very loud verbal stimulation. She has no spontaneous movement of her arms or her legs. She does open her eyes to loud verbal stimulation. She is maintaining her airway. She complains of being shortness of breath. The only real words that she is able to say is help me I am dying. Rest of the HPI is unobtainable. Treatments PRESSURE DISPATCHER: Reports: IV/IO, Oxygen - Related Data Allergies Allergy/AdvReac Type Severity Reaction Status Date / Time Penicillins Allergy Rash Verified 01/10/18 16:55 Home Meds: Home Meds Tiotropium [Spiriva HandiHaler] 18 mcg INH DAILY@1500 02/04/15 [History] Albuterol [Proair HFA] 2 puff INH Q4HR PRN #1 inhaler 02/08/15 [Rx] Escitalopram [Lexapro] 20 mg PO DAILY #30 tablet 03/21/15 [Rx] Calcium Carbonate [Tums Extra Strength] 750 mg PO Q2HR PRN #1 bottle 08/17/15 [Rx] Docusate Sodium/Sennosides [Senna Plus] 1 tab PO BID@0800,1800 #60 tablet 08/17/15 [Rx] Gabapentin [Neurontin] 300 mg PO QID 12/27/15 [History] Magnesium Oxide [Magnesium] 400 mg PO DAILY #100 tablet 12/27/15 [Rx] Metoprolol Succinate [Toprol XL] 12.5 mg PO BID 12/27/15 [History] ClonazePAM [KlonoPIN] 1 mg PO BID 02/25/16 [History] Roflumilast [Daliresp] 500 mcg PO DAILY 02/25/16 [History] Dextromethorphan/guaiFENesin [Mucinex DM ER 600-30 MG] 1 tab PO BID #30 tab.er 09/26/16 [Rx] Fluticasone/Salmeterol [Advair Diskus 500-50] 1 puff INH BID 09/26/16 [History] Furosemide [Lasix] 20 mg PO DAILY #0 09/26/16 [Rx] Potassium Chloride 20 meq PO DAILY #20 tablet.er 09/26/16 [Rx] Acetaminophen [Tylenol] 650 mg PO Q4HR PRN 01/10/18 [History] Albuterol/Ipratropium [DuoNeb 3.0-0.5 MG/3 ML] 3 ml NEB DAILY 01/10/18 [History] Aspirin 81 mg PO DAILY 01/10/18 [History] Ibuprofen 200 mg PO Q6HR PRN 01/10/18 [History] Past Medical History HEENT History: Reports: Allergic Rhinitis, Impaired Vision, Other (See Below) Other HEENT History: Patient wears glasses Cardiovascular History: Reports: Hypertension, Other (See Below) Other Cardiovascular History: Hypertension with previous episodes of hy potension, she does not know her cholesterol status Respiratory History: Reports: Bronchitis, Recurrent, COPD, Pneumonia, Recurrent, Pulmonary Fibrosis, Sleep Apnea, SOB, Other (See Below) Other Respiratory History: O2 dependent COPD and pulmonary fibrosis with patient using oxygen at 2 liter per N\C on a continuous basis and otherwise States puts oxygen at 3-4 liters per minute by nasal cannula with activity, including when she takes a shower. History of sleep apnea with patient noncompliant with her CPAP. Probable benign pulmonary nodules by CT scan March 2015 Gastrointestinal History: Reports: Chronic Constipation, GERD, Hemorrhoids Genitourinary History: Reports: None HARP REGULATOR History: Reports: , Spontaneous Other HARP REGULATOR History: First trimester SAB with demise delivery secondary to nuchal cord, menopause in her 40s, otherwise Full term without complications during pregnancies or deliveries Musculoskeletal History: Reports: Arthritis, Back Pain, Chronic, Neck Pain, Chronic, Osteoarthritis, Osteoporosis Neurological History: Reports: Migraines, Neuropathy, Peripheral, Other (See Below) Other Neuro History: Migraine headaches in her younger years however no longer problematic Psychiatric History: Reports: Anxiety, Depression Other Psychiatric History: mixed anxiety depression disorder Endocrine/Metabolic History: Reports: Multinodular Thyroid, Osteoporosis, Other (See Below) Other Endocrine/Metabolic History: multiple thyroid nodules with negative thyroid biopsy as below Hematologic History: Reports: Other (See Below) Other Hematologic History: thrombocytopenia, leukopenia Immunologic History: Reports: None Oncologic (Cancer) History: Reports: None Dermatologic History: Reports: None - Infectious Disease History Infectious Disease History: Reports: Chicken Pox - Past Surgical History Head Surgeries/Procedures: Reports: None HEENT Surgical History: Reports: Adenoidectomy, Oral Surgery, Tonsillectomy, Other (See Below) Other HEENT Surgeries/Procedures: Tonsillectomy and adenoidectomy at about age 9, complete teeth extraction Cardiovascular Surgical History: Reports: None Respiratory Surgical History: Reports: None GI Surgical History: Reports: None Female Surgical History: Reports: D&C, Dilitation & Evacuation, Other (See Below) Other Female Surgeries/Procedures: D&C with SAB in 1977 Endocrine Surgical History: Reports: Thyroid Biopsy, Other (See Below) Other Endocrine Surgeries/Procedures: Negative thyroid biopsy in June 2015 Neurological Surgical History: Reports: None Musculoskeletal Surgical History: Reports: None Oncologic Surgical History: Reports: None Dermatological Surgical History: Reports: Skin Biopsy, Other (See Below) - Past Imaging History Past Imaging History: Reports: CAT Scan, PFT, Ultrasound Social & Family History - Family History Cardiac: Reports: CAD, High Cholesterol, Hypertension, Other (See Below) Other Cardiac Family History: Son with PTCA/stent x6 in his 30s with no history of LA, etc., 2 sons with hyperlipidemia, son with hypertension Respiratory: Reports: COPD, Other (See Below) Other Respiratory Family Hisory: Maternal uncles x5, paternal uncles x2, and maternal aunt with COPD and history of tobacco use Psychiatric: Reports: Anxiety, Depression, Other (See Below) Other Psychiatric Family History: Anxiety depression disorder in mother Endocrine/Metabolic: Reports: Diabetes, type II, Hyperthyroidism, Hypothyroidism, Other (See Below) Other Endocrine/Metabolic Family History: Mother with AODM, sister with hyperthyroidism and subsequent hypothyroidism secondary to high to I-131 therapy Oncologic: Reports: Lung, Metastatic, Other (See Below) Other Oncologic Family History: Father with fatal lung cancer including cerebral metastases at age 39 with history of tobacco use - Tobacco Use Tobacco Use Status *Q: Former Tobacco User Used Tobacco, but Quit: Yes Month/Year Tobacco Last Used: 02/2015 - Caffeine Use Caffeine Use: Reports: Soda - Recreational Drug Use Recreational Drug Use: No - Living Situation & Occupation Living situation: Reports: , , Alone Occupation: Disabled ED ROS GENERAL - Review of Systems Review Of Systems: Unable To Obtain Reason Not Obtained: Altered mental status ED EXAM, GENERAL - Physical Exam Exam: See Below Free Text/Narrative:: Upon arrival the patient alerts to loud verbal. She is in severe distress obtunded near respiratory failure. Although she is maintaining her airway at this time. She has minimal spontaneous movement. She is only able to say 1 or 2 words at a time her respiratory effort is shallow and quite tachypneic Exam Limited By: Respiratory Distress General Appearance: Obtunded, Severe Distress Eye Exam: Bilateral Eye: EOMI Respiratory/Chest: Decreased Breath Sounds (Decrease shallow respirations quite tachypneic. Minimal air movement. No wheezing.), Accessory Muscle Use. No: Retractions Cardiovascular: Normal Peripheral Pulses, Regular Rate, Rhythm, Tachycardia Peripheral Pulses: 2+: Radial (L), Radial (R), Posterior Tibial (L), Posterior Tibial (R), Dorsalis Pedis (L), Dorsalis Pedis (R) GI/Abdominal: Normal Bowel Sounds, Soft, Non-Tender Back Exam: Normal Inspection Extremities: Normal Inspection, No Pedal Edema, Normal Capillary Refill Neurological: Slow to Respond Skin Exam: Dry, Intact, Cool ED GENERAL MEDICAL PROCEDURES - Endotracheal Intubation Time of Intubation: 22:30 ET Intubation Indication: Respiratory Failure, Airway Protection Preparation: Suction, Balloon Tested, BVM Set Up, Difficult Airway Equip Pre-Oxygenation: 100% FiO2, Other (BiPAP) Anesthesia Meds: Etomidate, Fentanyl, Succinylcholine Placement: Orotracheal, Cuffed, Uncomplicated Placement Cords Visualized: Yes, Grade 1 ETT Size In mm: 7.5 Number of Attempts: 1 Confirmed By: CO2 Indicator, Bilateral Breath Sounds, Chest Xray (ET tube above zachary) Tube Secured By: By Provider Endotracheal Intubation Comment: Patient tolerated the intubation. Unremarkable easy intubation with direct visualization of the ET tube through the cords. She was connected to the V 60 ventilator avaps tidal volume 400 respiratory rate 20 EPAP of 5 FiO2 60%. Course - Vital Signs Last Recorded V/S: Last Vital Signs Temp 97.5 F 04/05/21 19:27 Pulse 136 H 04/05/21 22:45 Resp 22 H 04/05/21 22:45 BP 103/65 04/05/21 22:45 Pulse Ox 98 04/05/21 22:45 - Orders/Labs/Meds Orders: Active Orders 24 hr Category Date Time Status [place] Catheter Insertion [Insert Urinary Catheter] [OM. Care 04/05/21 20:45 Ordered PC] Q24H Chest 1V Frontal [CR] Stat Exams 04/05/21 19:25 Taken CORONAVIRUS COVID-19 PCR PHL Stat Lab 04/05/21 19:26 Ordered CULTURE BLOOD [BC] Stat Lab 04/05/21 19:46 Received CULTURE BLOOD [BC] Stat Lab 04/05/21 20:03 Received CULTURE URINE [RM] Stat Lab 04/05/21 20:30 Received PROCALCITONIN [REF] Stat Lab 04/05/21 19:46 Received Blood Culture x2 Reflex Set [OM.PC] Stat Oth 04/05/21 19:25 Ordered Nasogastric Orogastric Tube Insertion [OM.PC] Routine Oth 04/05/21 21:55 Ordered Peripheral IV Insertion Adult [OM.PC] Stat Oth 04/05/21 19:25 Ordered Labs: Laboratory Tests 04/05/21 04/05/21 04/05/21 Range/Units 19:46 19:46 19:46 WBC 6.9 (4.0-10.2) K/uL RBC 3.84 (3.77-5.09) M/uL Hgb 11.1 L (11.7-15.5) g/dL Hct 36.4 (34.0-46.0) % MCV 94.8 D (84.0-98.0) fL MCH 28.9 (28.2-33.3) pg MCHC 30.5 L (31.7-36.0) g/dL RDW 12.3 (11.2-14.1) % Plt Count 154 (150-350) K/uL Neut % (Auto) 85.3 H (45.0-80.0) % Lymph % (Auto) 10.8 (10.0-50.0) % [place] % (Auto) 3.9 (2.0-14.0) % Eos % (Auto) 0.0 (0.0-5.0) % Baso % (Auto) 0.0 (0.0-2.0) % Neut # (Auto) 5.84 (1.40-7.00) K/uL Lymph # (Auto) 0.74 (0.50-3.50) K/uL [place] # (Auto) 0.27 (0.00-1.00) K/uL Eos # (Auto) 0.00 (0.00-0.50) K/uL Baso # (Auto) 0.00 (0.00-0.20) K/uL VBG pH (7.31-7.41) VBG pCO2 (41-51) mmHG VBG pO2 mmHG VBG HCO3 (23-28) mmol/L VBG Total CO2 mmol/L VBG O2 Saturation % VBG Base Excess ((-2)-3) mmol/L O2 Delivery Device Sodium 136 (136-145) mmol/L Potassium 5.1 D (3.5-5.1) mmol/L Chloride 100 (98-107) mmol/L Carbon Dioxide 32.9 H (21.0-32.0) mmol/L Anion Gap 8.2 (7-15) meq/L BUN 8 (7-18) mg/dL Creatinine 0.56 (0.51-1.17) mg/dL Est Cr Clr Drug Dosing TNP Estimated GFR (MDRD) > 60 mL/min Glucose 190 H (70-99) mg/dL Lactic Acid 0.5 (0.4-2.0) mmol/L Calcium 7.9 L (8.5-10.1) mg/dL Total Bilirubin 0.5 (0.2-1.0) mg/dL AST 14 L (15-37) U/L ALT 15 (12-78) U/L Alkaline Phosphatase 59 (46-116) IU/L Troponin I High Sens 10 (<=51) ng/L C-Reactive Protein < 0.2 (<=0.9) mg/dL NT-Pro-B Natriuret Pep (0-125) pg/mL Total Protein 6.6 (6.4-8.2) g/dL Albumin 3.7 (3.4-5.0) g/dL Specimen Type Urine Color Urine Appearance Urine pH (5.0-9.0) Ur Specific [place] (1.005-1.030) Urine Protein (NEGATIVE) mg/dL Urine Glucose (UA) (NEGATIVE) mg/dL Urine Ketones (NEGATIVE) mg/dL Urine Occult Blood (NEGATIVE) Urine Nitrite (NEGATIVE) Urine Bilirubin (NEGATIVE) Urine Urobilinogen (0.2-1.0) E.U./dL Ur Leukocyte Esterase (NEGATIVE) Urine RBC /HPF Urine WBC /HPF Ur Epithelial Cells /LPF Urine Bacteria (NONE TO FEW) /HPF Urine Mucus (NEGATIVE) /LPF SARS-CoV-2 RNA (KEILY) (NEGATIVE) 04/05/21 04/05/21 04/05/21 Range/Units 19:46 19:46 20:15 WBC (4.0-10.2) K/uL RBC (3.77-5.09) M/uL Hgb (11.7-15.5) g/dL Hct (34.0-46.0) % MCV (84.0-98.0) fL MCH (28.2-33.3) pg MCHC (31.7-36.0) g/dL RDW (11.2-14.1) % Plt Count (150-350) K/uL Neut % (Auto) (45.0-80.0) % Lymph % (Auto) (10.0-50.0) % [place] % (Auto) (2.0-14.0) % Eos % (Auto) (0.0-5.0) % Baso % (Auto) (0.0-2.0) % Neut # (Auto) (1.40-7.00) K/uL Lymph # (Auto) (0.50-3.50) K/uL [place] # (Auto) (0.00-1.00) K/uL Eos # (Auto) (0.00-0.50) K/uL Baso # (Auto) (0.00-0.20) K/uL VBG pH 7.14 L (7.31-7.41) VBG pCO2 100 H (41-51) mmHG VBG pO2 39 mmHG VBG HCO3 34 H (23-28) mmol/L VBG Total CO2 35 mmol/L VBG O2 Saturation 53 % VBG Base Excess 2 ((-2)-3) mmol/L O2 Delivery Device Nasal cannula Sodium (136-145) mmol/L Potassium (3.5-5.1) mmol/L Chloride (98-107) mmol/L Carbon Dioxide (21.0-32.0) mmol/L Anion Gap (7-15) meq/L BUN (7-18) mg/dL Creatinine (0.51-1.17) mg/dL Est Cr Clr Drug Dosing Estimated GFR (MDRD) mL/min Glucose (70-99) mg/dL Lactic Acid (0.4-2.0) mmol/L Calcium (8.5-10.1) mg/dL Total Bilirubin (0.2-1.0) mg/dL AST (15-37) U/L ALT (12-78) U/L Alkaline Phosphatase (46-116) IU/L Troponin I High Sens (<=51) ng/L C-Reactive Protein (<=0.9) mg/dL NT-Pro-B Natriuret Pep 308 H (0-125) pg/mL Total Protein (6.4-8.2) g/dL Albumin (3.4-5.0) g/dL Specimen Type Urine Color Urine Appearance Urine pH (5.0-9.0) Ur Specific [place] (1.005-1.030) Urine Protein (NEGATIVE) mg/dL Urine Glucose (UA) (NEGATIVE) mg/dL Urine Ketones (NEGATIVE) mg/dL Urine Occult Blood (NEGATIVE) Urine Nitrite (NEGATIVE) Urine Bilirubin (NEGATIVE) Urine Urobilinogen (0.2-1.0) E.U./dL Ur Leukocyte Esterase (NEGATIVE) Urine RBC /HPF Urine WBC /HPF Ur Epithelial Cells /LPF Urine Bacteria (NONE TO FEW) /HPF Urine Mucus (NEGATIVE) /LPF SARS-CoV-2 RNA (KEILY) Negative (NEGATIVE) 04/05/21 04/05/21 04/05/21 Range/Units 20:30 20:46 22:05 WBC (4.0-10.2) K/uL RBC (3.77-5.09) M/uL Hgb (11.7-15.5) g/dL Hct (34.0-46.0) % MCV (84.0-98.0) fL MCH (28.2-33.3) pg MCHC (31.7-36.0) g/dL RDW (11.2-14.1) % Plt Count (150-350) K/uL Neut % (Auto) (45.0-80.0) % Lymph % (Auto) (10.0-50.0) % [place] % (Auto) (2.0-14.0) % Eos % (Auto) (0.0-5.0) % Baso % (Auto) (0.0-2.0) % Neut # (Auto) (1.40-7.00) K/uL Lymph # (Auto) (0.50-3.50) K/uL [place] # (Auto) (0.00-1.00) K/uL Eos # (Auto) (0.00-0.50) K/uL Baso # (Auto) (0.00-0.20) K/uL VBG pH 7.14 L 7.09 L (7.31-7.41) VBG pCO2 93 H 103 H (41-51) mmHG VBG pO2 27 28 mmHG VBG HCO3 32 H 31 H (23-28) mmol/L VBG Total CO2 33 33 mmol/L VBG O2 Saturation 31 30 % VBG Base Excess 1 -1 ((-2)-3) mmol/L O2 Delivery Device Bipap Ventilator Sodium (136-145) mmol/L Potassium (3.5-5.1) mmol/L Chloride (98-107) mmol/L Carbon Dioxide (21.0-32.0) mmol/L Anion Gap (7-15) meq/L BUN (7-18) mg/dL Creatinine (0.51-1.17) mg/dL Est Cr Clr Drug Dosing Estimated GFR (MDRD) mL/min Glucose (70-99) mg/dL Lactic Acid (0.4-2.0) mmol/L Calcium (8.5-10.1) mg/dL Total Bilirubin (0.2-1.0) mg/dL AST (15-37) U/L ALT (12-78) U/L Alkaline Phosphatase (46-116) IU/L Troponin I High Sens (<=51) ng/L C-Reactive Protein (<=0.9) mg/dL NT-Pro-B Natriuret Pep (0-125) pg/mL Total Protein (6.4-8.2) g/dL Albumin (3.4-5.0) g/dL Specimen Type Urinvoid Urine Color Yellow Urine Appearance Slightly cloudy Urine pH 6.0 (5.0-9.0) Ur Specific [place] >= 1.030 (1.005-1.030) Urine Protein Trace H (NEGATIVE) mg/dL Urine Glucose (UA) Negative (NEGATIVE) mg/dL Urine Ketones 40 H (NEGATIVE) mg/dL Urine Occult Blood Trace-intact H (NEGATIVE) Urine Nitrite Positive H (NEGATIVE) Urine Bilirubin Negative (NEGATIVE) Urine Urobilinogen 0.2 (0.2-1.0) E.U./dL Ur Leukocyte Esterase Negative (NEGATIVE) Urine RBC 5-10 H /HPF Urine WBC 20-30 H /HPF Ur Epithelial Cells Moderate H /LPF Urine Bacteria Many H (NONE TO FEW) /HPF Urine Mucus Few H (NEGATIVE) /LPF SARS-CoV-2 RNA (KEILY) (NEGATIVE) 04/05/21 Range/Units 23:05 WBC (4.0-10.2) K/uL RBC (3.77-5.09) M/uL Hgb (11.7-15.5) g/dL Hct (34.0-46.0) % MCV (84.0-98.0) fL MCH (28.2-33.3) pg MCHC (31.7-36.0) g/dL RDW (11.2-14.1) % Plt Count (150-350) K/uL Neut % (Auto) (45.0-80.0) % Lymph % (Auto) (10.0-50.0) % [place] % (Auto) (2.0-14.0) % Eos % (Auto) (0.0-5.0) % Baso % (Auto) (0.0-2.0) % Neut # (Auto) (1.40-7.00) K/uL Lymph # (Auto) (0.50-3.50) K/uL [place] # (Auto) (0.00-1.00) K/uL Eos # (Auto) (0.00-0.50) K/uL Baso # (Auto) (0.00-0.20) K/uL VBG pH 7.12 L (7.31-7.41) VBG pCO2 86 H (41-51) mmHG VBG pO2 42 mmHG VBG HCO3 28 (23-28) mmol/L VBG Total CO2 29 mmol/L VBG O2 Saturation 59 % VBG Base Excess -3 L ((-2)-3) mmol/L O2 Delivery Device Ventilator Sodium (136-145) mmol/L Potassium (3.5-5.1) mmol/L Chloride (98-107) mmol/L Carbon Dioxide (21.0-32.0) mmol/L Anion Gap (7-15) meq/L BUN (7-18) mg/dL Creatinine (0.51-1.17) mg/dL Est Cr Clr Drug Dosing Estimated GFR (MDRD) mL/min Glucose (70-99) mg/dL Lactic Acid (0.4-2.0) mmol/L Calcium (8.5-10.1) mg/dL Total Bilirubin (0.2-1.0) mg/dL AST (15-37) U/L ALT (12-78) U/L Alkaline Phosphatase (46-116) IU/L Troponin I High Sens (<=51) ng/L C-Reactive Protein (<=0.9) mg/dL NT-Pro-B Natriuret Pep (0-125) pg/mL Total Protein (6.4-8.2) g/dL Albumin (3.4-5.0) g/dL Specimen Type Urine Color Urine Appearance Urine pH (5.0-9.0) Ur Specific [place] (1.005-1.030) Urine Protein (NEGATIVE) mg/dL Urine Glucose (UA) (NEGATIVE) mg/dL Urine Ketones (NEGATIVE) mg/dL Urine Occult Blood (NEGATIVE) Urine Nitrite (NEGATIVE) Urine Bilirubin (NEGATIVE) Urine Urobilinogen (0.2-1.0) E.U./dL Ur Leukocyte Esterase (NEGATIVE) Urine RBC /HPF Urine WBC /HPF Ur Epithelial Cells /LPF Urine Bacteria (NONE TO FEW) /HPF Urine Mucus (NEGATIVE) /LPF SARS-CoV-2 RNA (KEILY) (NEGATIVE) Meds: Medications Discontinued Medications Generic Name Dose Route Start Last Admin Trade Name Angeliac PRN Reason Stop Dose Admin Albuterol 2.5 mg 04/05/21 19:47 04/05/21 19:50 Albuterol 0.083% 2.5 Mg/3 Ml Neb Soln NEB 04/05/21 19:48 2.5 mg ONETIME ONE Administration Albuterol 2.5 mg 04/05/21 21:43 04/05/21 21:49 Albuterol 0.083% 2.5 Mg/3 Ml Neb Soln NEB 04/05/21 21:44 2.5 mg ONETIME ONE Administration Albuterol/Ipratropium 3 ml 04/05/21 19:26 04/05/21 19:30 Albuterol/Ipratropium 3.0-0.5 Mg/3 Ml Neb Soln NEB 04/05/21 19:27 3 ml ONETIME ONE Administration Arformoterol Tartrate 15 mcg 04/05/21 20:57 04/05/21 21:10 Arformoterol 15 Mcg/2 Ml Neb Soln NEB 04/05/21 20:58 15 mcg ONETIME ONE Administration Budesonide 1 mg 04/05/21 19:26 04/05/21 19:35 Budesonide 0.5 Mg/2 Ml Neb Susp NEB 04/05/21 19:27 1 mg ONETIME ONE Administration Budesonide Confirm 04/05/21 19:39 04/05/21 19:42 Budesonide 0.5 Mg/2 Ml Neb Susp Administered 04/05/21 19:40 Not Given Dose 0.5 mg .ROUTE .STK-MED ONE Ceftriaxone Sodium 2 gm 04/05/21 19:50 04/05/21 19:57 Ceftriaxone 2 Gm Vial IVPUSH 04/05/21 19:51 2 gm NOW STA Administration Etomidate 20 mg 04/05/21 20:14 04/05/21 21:39 Etomidate 2 Mg/Ml 10 Ml Sdv IVPUSH 04/05/21 20:15 20 mg ONETIME ONE Administration Fentanyl 100 mcg 04/05/21 20:14 04/05/21 21:41 Fentanyl 100 Mcg/2 Ml Sdv IVPUSH 04/05/21 20:15 100 mcg ONETIME ONE Administration Fentanyl Confirm 04/05/21 21:42 04/05/21 21:45 Fentanyl 100 Mcg/2 Ml Sdv Administered 04/05/21 21:43 Not Given Dose 100 mcg .ROUTE .STK-MED ONE Fentanyl 100 mcg 04/05/21 21:43 04/05/21 21:45 Fentanyl 100 Mcg/2 Ml Sdv IVPUSH 04/05/21 21:44 100 mcg ONETIME ONE Administration Fentanyl 50 mcg 04/05/21 22:33 04/05/21 22:45 Fentanyl 50 Mcg/Ml Sdv IVPUSH 04/05/21 22:34 50 mcg ONETIME ONE Administration Fentanyl 100 mcg 04/05/21 22:44 04/05/21 22:46 Fentanyl 100 Mcg/2 Ml Sdv IVPUSH 04/05/21 22:45 100 mcg ONETIME ONE Administration Azithromycin 500 mg/ Sodium 250 mls @ 250 mls/hr 04/05/21 19:50 04/05/21 19:58 Chloride IV 04/05/21 20:49 250 mls/hr ONETIME ONE Administration Lactated Ringer's 1,000 mls @ 1,000 mls/hr 04/05/21 20:34 04/05/21 21:46 Ringers, Lactated IV 04/05/21 21:33 1,000 mls/hr .BOLUS ONE Administration Lactated Ringer's 1,000 mls @ 125 mls/hr 04/05/21 22:45 Ringers, Lactated IV ASDIRECTED ANN MARIE Lactated Ringer's 1,000 mls @ 1,000 mls/hr 04/05/21 22:36 04/05/21 22:44 Ringers, Lactated IV 04/05/21 23:35 1,000 mls/hr .BOLUS ONE Administration Lactated Ringer's 1,000 mls @ 1,000 mls/hr 04/05/21 22:38 04/05/21 22:45 Ringers, Lactated IV 04/05/21 23:37 1,000 mls/hr .BOLUS ONE Administration Methylprednisolone Sodium Succinate 125 mg 04/05/21 19:26 04/05/21 19:32 Methylprednisolone Sodium Succinate 125 Mg/2 Ml Sdv IVPUSH 04/05/21 19:27 125 mg ONETIME ONE Administration Methylprednisolone Sodium Succinate 125 mg 04/05/21 21:09 04/05/21 21:39 Methylprednisolone Sodium Succinate 125 Mg/2 Ml Sdv IVPUSH 04/05/21 21:10 125 mg ONETIME ONE Administration Propofol 200 mg 04/05/21 20:15 04/05/21 21:42 Propofol 200 Mg/20 Ml Sdv IVPUSH 04/05/21 20:16 200 mg ONETIME ONE Administration Protocol Propofol Confirm 04/05/21 21:32 04/05/21 21:48 Propofol 200 Mg/20 Ml Sdv Administered 04/05/21 21:33 200 mg Dose Administration 200 mg .ROUTE .STK-MED ONE Propofol Confirm 04/05/21 22:52 Propofol 200 Mg/20 Ml Sdv Administered 04/05/21 22:53 Dose 200 mg .ROUTE .STK-MED ONE Rocuronium [place] 50 mg 04/05/21 22:26 04/05/21 22:43 Rocuronium 100 Mg/10 Ml Mdv IV 04/05/21 22:27 50 mg NOW STA Administration Sodium Chloride 10 ml 04/05/21 19:25 04/05/21 19:32 Sodium Chloride 0.9% 10 Ml Syringe FLUSH 10 ml ASDIRECTED PRN Administration Keep Vein Open Succinylcholine Chloride 100 mg 04/05/21 20:14 04/05/21 21:40 Succinylcholine 200 Mg/10 Ml Mdv IV 04/05/21 20:15 5 ml ONETIME STA Administration - Re-Assessments/Exams Free Text/Narrative Re-Assessment/Exam: 04/05/21 20:52 Immediately upon arrival the patient was placed on BiPAP. IPAP of 20 EPAP of 5 giving us a pressure support of 15. 75% FiO2. IV was established labs were drawn. Blood cultures x2. Budesonide 1 mg nebulizer DuoNeb nebulizer Solu-Medrol 125 mg IV push. LR 1 L wide open. Ceftriaxone 2 g IV push. A azithromycin 5 and a milligrams IV piggyback. Her chest x-ray initially reviewed extemporaneously by myself shows quite significant air trapping consistent with severe chronic COPD. Cardiac silhouette is unremarkable. She has no pneumothorax. No infiltrate consolidation or effusion. Radiological review to follow. Venous blood gases with a pH of 7.12, PCO2 100 bicarb 34, base excess 2 this was drawn shortly after the BiPAP was initiated. We will repeat in 1 hour. CMP with a carbon dioxide of 32.9, glucose 190, calcium 7.9. Lactic acid is normal at 0.5. Troponin is negative at 10. C-reactive protein less than 0.2. Initially when the patient was placed on the BiPAP the end-tidal CO2 was reading approximately 70. After being on the BiPAP for approximately 40 minutes her end-tidal CO2 is now down to 40. She alerts easily to verbal. Does not have much for spontaneous movement. Respiratory rate has improved to about 28. Her FiO2 has been decreased to 50% and her saturation is 97%. [place] catheter was placed to 2 critical patient. Urinalysis shows a trace of occult blood, 40 ketones trace protein. Specific gravity greater than 1.030. U WBCs 2030. This is clearly a urinary tract infection which will be covered by the Rocephin. Urine culture pending. After an hour of the patient being on the BiPAP she had no change in her mentation. Repeat venous blood gas shows a pH of 7.09, PCO2 103 bicarb 31 base excess -1. This patient is clearly worsened after 1 hour of BiPAP therapy. I discussed with the patient and her the concerns of severe hypoxic hypercapnic respiratory failure in the presence of severe COPD exacerbation. The patient is somewhat confused. The patient at the bedside would like the patient intubated. Risk and benefits were explained to the patient's and he was comfortable with this plan. The patient was prepared for intubation. Patient received fentanyl etomidate and succinylcholine. He was easily intubated with 1 attempt of direct visualization of the ET tube through the cords. She was connected to the V 60 ventilator. The patient was having some rather low tidal volumes although the tidal volume was 7400 she was having some peak pressures at 37. Her end-tidal CO2 was picking up. And showed minimal air movement. She was placed on a propofol drip. She was also given fentanyl as needed. Due to the low tidal volumes and her creeping end-tidal CO2 and her elevated peak inspiratory pressure. She was given Zemuron as well. She had much improvement of her oxygenation ventilation and control of her end-tidal CO2. Nebulizers were given through the ET tube as well. We continued fluid resuscitation. Bedside POCUS as well as echocardiogram. After 2-1/2 L of fluid the patient has only had 100 mils of urinary output. Although her inferior vena cava is at 2 cm without respiratory variation. I do not feel that she needs more fluid at this time. Had excellent subxiphoid views of the 4 chambers of the heart. There is no pericardial effusion. Her right atria is rather large this is most likely due to chronic pulmonary hypertension. She has a hyperdynamic heart. I see no local wall abnormalities. Ejection fraction grossly estimated at approximately 60%. Aortic root at 3 cm. Unable to see descending aorta. No valvular gross abnormalities. Patient did become somewhat tachycardic and I had concerns with her elevated peak pressures for the concerns of a possible pneumothorax. Bedside POCUS of the lungs for zones by blue protocol does not elicit any signs of overt pneumothorax. Repeat pictures resolved after the administration of the Zemuron. And I think her peak pressures are due to severe COPD. Unsure of the cause of her tachycardia which improved after fentanyl and increasing her propofol drip that she was initially started at 30 mcg/kg/min and subsequently was increased to 40 mcg/kg/min. I called and spoke with Dr. Balderas at [facility]. HPI ER COURSE findings and concerns were relayed to him. His questions were answered and he had no new orders. [facility] was contacted for trasnport. The patient maintained BP above MAP of 65 while in the ED. Shannon arrived and assumed care of the patient. Departure - Departure Time of Disposition: 22:00 Disposition: DC/Tfer to [facility] 02 Clinical Impression: Acute on chronic respiratory failure with hypoxia and hypercapnia, COPD with acute exacerbation UTI (urinary tract infection) Qualifiers: Urinary tract infection type: site unspecified Hematuria presence: with hematuria Qualified Code(s): N39.0 - Urinary tract infection, site not specified - Discharge Information Referrals: Farrah Thomas PA [Primary Care Provider] - Forms: ED Department Discharge, Interfacility Transfer GAIL Critical Care Note - Critical Care Note Total Time (mins): 190 Comments: 180 minutes of direct critical care time was spent in direct management of this very ill patient. Including BiPAP initiation by myself. Monitoring and adjusting of the BiPAP. Frequent reassessments not only of laboratory evaluation as well as patient status. Consultation with multiple providers to transfer this patient. Multiple therapies needed to assist the nursing staff in the care of this critical care patient. RSI intubation ventilator initiation and management. Reviewing of multiple laboratory evaluations and redrawing a venous blood gases interpretations and ventilator management. This does not include other separately billable procedures or therapies. Sepsis Event Note (ED) - Evaluation Sepsis Screening Result: No Definite Risk - Focused Exam Vital Signs: Vital Signs Temp Pulse Resp BP Pulse Ox 04/05/21 22:45 136 H 22 H 103/65 98 04/05/21 22:30 116 H 20 126/71 94 L 04/05/21 22:15 108 H 22 H 115/62 99 04/05/21 21:45 86 26 H 102/59 L 97 04/05/21 21:30 86 26 H 88/56 L 99 04/05/21 21:15 88 25 H 117/85 04/05/21 21:00 99 26 H 110/75 04/05/21 20:30 106 H 22 H 118/60 100 04/05/21 20:15 106 H 22 H 116/70 100 04/05/21 20:00 100 22 H 117/67 04/05/21 19:45 101 H 22 H 124/75 98 04/05/21 19:30 100 22 H 151/76 H 97 04/05/21 19:27 97.5 F 108 H 20 92 L - My Orders Last 24 Hours: My Active Orders 04/05/21 19:25 Chest 1V Frontal [CR] Stat Blood Culture x2 Reflex Set [OM.PC] Stat Peripheral IV Insertion Adult [OM.PC] Stat 04/05/21 19:26 CORONAVIRUS COVID-19 PCR PHL Stat 04/05/21 19:46 CULTURE BLOOD [BC] Stat PROCALCITONIN [REF] Stat 04/05/21 20:03 CULTURE BLOOD [BC] Stat 04/05/21 20:30 CULTURE URINE [RM] Stat 04/05/21 20:45 [place] Catheter Insertion [Insert Urinary Catheter] [OM.PC] Q24H 04/05/21 21:55 Nasogastric Orogastric Tube Insertion [OM.PC] Routine - Assessment/Plan Last 24 Hours: My Active Orders 04/05/21 19:25 Chest 1V Frontal [CR] Stat Blood Culture x2 Reflex Set [OM.PC] Stat Peripheral IV Insertion Adult [OM.PC] Stat 04/05/21 19:26 CORONAVIRUS COVID-19 PCR PHL Stat 04/05/21 19:46 CULTURE BLOOD [BC] Stat PROCALCITONIN [REF] Stat 04/05/21 20:03 CULTURE BLOOD [BC] Stat 04/05/21 20:30 CULTURE URINE [RM] Stat 04/05/21 20:45 [place] Catheter Insertion [Insert Urinary Catheter] [OM.PC] Q24H 04/05/21 21:55 Nasogastric Orogastric Tube Insertion [OM.PC] Routine
[2021-04-05] MEDS ORDERED: Arformoterol 15 MCG/2 ML Neb Soln NEB ONE (20:57)
[2021-04-05 20:58] LABS: PCO2 VENOUS 93 mmHG (41-51); PH,VENOUS 7.14 (7.31-7.41)
[2021-04-05 20:59] LABS: BASE EXCESS VENOUS 1 mmol/L ((-2)-3); BICARBONATE,VENOUS 32 mmol/L (23-28); O2 SATURATION VENOUS 31 %; PO2 VENOUS 27 mmHG
[2021-04-05] MEDS ORDERED: Propofol 200 MG/20 ML SDV ONE ×2 (21:32→22:52)
[2021-04-05] MEDS ORDERED: fentaNYL 100 MCG/2 ML SDV ONE (21:42)
[2021-04-05 22:16] LABS: O2 DELIVERY DEVICE VENTILATOR; PCO2 VENOUS 103 mmHG (41-51); PH,VENOUS 7.09 (7.31-7.41)
[2021-04-05 22:17] LABS: BASE EXCESS VENOUS -1 mmol/L ((-2)-3); BICARBONATE,VENOUS 31 mmol/L (23-28); O2 SATURATION VENOUS 30 %; PO2 VENOUS 28 mmHG
[2021-04-05] MEDS ORDERED: Rocuronium 100 MG/10 ML MDV IV STA (22:26)
[2021-04-05] MEDS ORDERED: fentaNYL 50 MCG/ML SDV IVPUSH ONE (22:33)
[2021-04-05] MEDS ORDERED: Lactated Ringers 1,000 ML IV SCH (22:45)
[2021-04-05 23:10] LABS: O2 DELIVERY DEVICE VENTILATOR
[2021-04-05 23:20] LABS: BASE EXCESS VENOUS -3 mmol/L ((-2)-3); BICARBONATE,VENOUS 28 mmol/L (23-28); O2 SATURATION VENOUS 59 %; PCO2 VENOUS 86 mmHG (41-51); PH,VENOUS 7.12 (7.31-7.41); PO2 VENOUS 42 mmHG
[2021-04-06 00:29] VITALS: BP 103/65; PULSE 136
== END 2021-04-05 22:45 ==
LOC: LL.ED 19:13
DX: J96.21 Acute and chronic respiratory failure with hypoxia (principal); J96.22 Acute and chronic respiratory failure with hypercapnia; J44.1 Chronic obstructive pulmonary disease with (acute) exacerbation; N39.0 Urinary tract infection, site not specified; R31.9 Hematuria, unspecified; I10 Essential (primary) hypertension; M19.90 Unspecified osteoarthritis, unspecified site; Z87.891 Personal history of nicotine dependence; Z88.0 Allergy status to penicillin; Z79.82 Long term (current) use of aspirin; Z79.899 Other long term (current) drug therapy; Z20.822 Contact with and (suspected) exposure to COVID-19
CPT/HCPCS: 31500; 36415; 43752; 51702; 71045; 80053; 81001; 82803; 83605; 83880; 84145; 84484; 85025; 86140; 87040; 87086; 93005; 94640; 94660; 96365; 96375; 96376; 99285; 99291-25; 99292; J0330; J0456; J0696; J2704; J2930; J3010; J3490; J7050; J7120; J7613-GY; J7620-GY; U0002

== ENCOUNTER 2021-06-10 17:16 | Emergency (ER) | payer MEDICARE, MEDICAID ==
[2021-06-10] MEDS ORDERED: Sodium Chloride 0.9% 10 ML Syringe FLUSH PRN (17:34)
[2021-06-10] MEDS ORDERED: Albuterol/Ipratropium 3.0-0.5 MG/3 ML Neb Soln NEB ONE (17:37)
--- NOTE | 2021-06-10 17:55 | EDM.PDOC ---
ED HPI GENERAL MEDICAL PROBLEM - General Chief Complaint: Respiratory Problem Stated Complaint: INCREASED WEAKNESS/COUGH Time Seen by Provider: 06/10/21 17:24 Source of Information: Reports: Patient, EMS, Family, RN History Limitations: Reports: No Limitations - History of Present Illness INITIAL COMMENTS - FREE TEXT/NARRATIVE: Shazia is a pleasant 70 year old female with PMH most significant for chronic respiratory failure with hypoxia on 2-3L continuous at baseline, chronic COPD with recurrent bronchitis and PNA, depression with anxiety, chronic neck and back pain, who recently had a prolonged hospital stay after testing positive for COVID 19 in April 2021. She was intubated and on mechanical ventilation but has since recovered to discharge home. she states that she never really recovered from the COVID and has continued to be extremely weak and fatigued. She was already on disability but now needs help with all ADLS. She says that she began having a wet cough in the past week or two. she was seen by her PCP who, according to the patient, thought maybe she was having a COPD exacerbation so he started her on dexamethasone 4mg once daily for 5 days in addition to her hope COPD medications. she was not prescribed an abx. since taking the dexamethasone ( 3 days) she has had increased difficulty sleeping and has become much weaker. She was complaining of subjective shortness of breath so called EMS to take her to the ED for further evaluation and treatment. Prior to coming to the ED she did try her home inhalers, duo nebs, increasing her supplemental oxygen and the dexamethasone with no improvement. any activity makes her symptoms worse, rest prevents them from worsening but doesn't make them better. Onset: Gradual Treatments FLIGHT ATTENDANT: Reports: Breathing Treatments, Oxygen - Related Data Allergies Allergy/AdvReac Type Severity Reaction Status Date / Time Penicillins Allergy Rash Verified 06/10/21 19:07 Home Meds: Home Meds Tiotropium [Spiriva HandiHaler] 18 mcg INH DAILY@1200 02/04/15 [History] Albuterol [Proair HFA] 2 puff INH Q4HR PRN #1 inhaler 02/08/15 [Rx] Escitalopram [Lexapro] 20 mg PO DAILY #30 tablet 03/21/15 [Rx] Calcium Carbonate [Tums Extra Strength] 750 mg PO Q2HR PRN #1 bottle 08/17/15 [Rx] ClonazePAM [KlonoPIN] 1 mg PO BID PRN 02/25/16 [History] Fluticasone/Salmeterol [Advair Diskus 500-50] 1 puff INH BID 09/26/16 [History] Acetaminophen [Tylenol] 650 mg PO Q4HR PRN 01/10/18 [History] Albuterol/Ipratropium [DuoNeb 3.0-0.5 MG/3 ML] 3 ml NEB DAILY PRN 01/10/18 [History] Ibuprofen 200 mg PO Q6HR PRN 01/10/18 [History] Metoprolol Succinate [Toprol XL] 25 mg PO DAILY 06/10/21 [History] Past Medical History HEENT History: Reports: Allergic Rhinitis, Impaired Vision Other HEENT History: Patient wears glasses Cardiovascular History: Reports: Hypertension, Other (See Below) Other Cardiovascular History: she does not know her cholesterol status Respiratory History: Reports: Bronchitis, Recurrent, COPD, Pneumonia, Recurrent, Pulmonary Fibrosis, Sleep Apnea, SOB, Other (See Below) Other Respiratory History: O2 dependent COPD and pulmonary fibrosis with patient using oxygen at 2 liter per N\C continuous. States puts oxygen at 3-4 liters per minute by nasal cannula with activity, including when she takes a shower. History of ROC, noncompliant with CPAP. 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 GLUE JOINTER FEEDBACK History: Reports: , Spontaneous Other VENEER GLUE JOINTER FEEDBACK History: First trimester SAB with demise delivery secondary to nuchal cord, menopause in her 40s, otherwise Full term without complications during pregnancies or deliveries Musculoskeletal History: Reports: Arthritis, Back Pain, Chronic, Neck Pain, Chronic, Osteoarthritis, Osteoporosis Neurological History: Reports: Migraines, Neuropathy, Peripheral, Other (See Below) Other Neuro History: Migraine headaches in her younger years however no longer problematic Psychiatric History: Reports: Anxiety, Depression Endocrine/Metabolic History: Reports: Multinodular Thyroid, Osteoporosis, Other (See Below) Other Endocrine/Metabolic History: multiple thyroid nodules with negative thyroid biopsy as below Hematologic History: Reports: Other (See Below) Other Hematologic History: thrombocytopenia, leukopenia Immunologic History: Reports: None Oncologic (Cancer) History: Reports: None Dermatologic History: Reports: None - Infectious Disease History Infectious Disease History: Reports: Chicken Pox, Other (See Below) (COVID 27 April 2021) - Past Surgical History Head Surgeries/Procedures: Reports: None HEENT Surgical History: Reports: Adenoidectomy, Oral Surgery, Tonsillectomy, Other (See Below) Other HEENT Surgeries/Procedures: Tonsillectomy and adenoidectomy at about age 9, complete teeth extraction Cardiovascular Surgical History: Reports: None Respiratory Surgical History: Reports: None GI Surgical History: Reports: None Female Surgical History: Reports: D&C Other Female Surgeries/Procedures: D&C with SAB in 1977 Endocrine Surgical History: Reports: Thyroid Biopsy, Other (See Below) Other Endocrine Surgeries/Procedures: Negative thyroid biopsy in June 2015 Neurological Surgical History: Reports: None Musculoskeletal Surgical History: Reports: None Oncologic Surgical History: Reports: None Dermatological Surgical History: Reports: Skin Biopsy, Other (See Below) - Past Imaging History Past Imaging History: Reports: CAT Scan, PFT, Ultrasound Social & Family History - Family History HEENT: Reports: None Cardiac: Reports: CAD, High Cholesterol, Hypertension, Other (See Below) Other Cardiac Family History: Son with PTCA/stent x6 in his 30s with no history of [place], etc., 2 sons with hyperlipidemia, son with hypertension Respiratory: Reports: COPD, Other (See Below) Other Respiratory Family Hisory: Maternal uncles x5, paternal uncles x2, and maternal aunt with COPD and history of tobacco use Psychiatric: Reports: Anxiety, Depression, Other (See Below) Other Psychiatric Family History: Anxiety depression disorder in mother Endocrine/Metabolic: Reports: Diabetes, type II, Hyperthyroidism, Hypothyroidism, Other (See Below) Other Endocrine/Metabolic Family History: Mother with AODM, sister with hyperthyroidism and subsequent hypothyroidism secondary to high to I-131 therapy Oncologic: Reports: Lung, Metastatic, Other (See Below) Other Oncologic Family History: Father with fatal lung cancer including cerebral metastases at age 39 with history of tobacco use - Tobacco Use Tobacco Use Status *Q: Former Tobacco User Tobacco Use Within Last Twelve Months: No Years of Tobacco use: 46 Packs/Tins Daily: 2.5 Used Tobacco, but Quit: Yes Second Hand Smoke Exposure: No - Tobacco Core Measures Tobacco Use/Smoking Within Last 30 Days: No Smoking Frequency Within Last 30 Days: Reports: None Smokeless Tobacco Use in Last 30 Days: No - Caffeine Use Caffeine Use: Reports: Soda - Alcohol Use Alcohol Use History: No - Recreational Drug Use Recreational Drug Use: No Drug Use in Last 12 Months: No - Sexual History Sexual History: Reports: Opposite Sex Partner - Living Situation & Occupation Living situation: Reports: Occupation: Disabled ED ROS GENERAL - Review of Systems Review Of Systems: See Below Constitutional: Reports: Weakness, Fatigue HEENT: Reports: No Symptoms Respiratory: Reports: Shortness of Breath, Cough, Sputum (clear). Denies: Wheezing, Pleuritic Chest Pain, Hemoptysis Cardiovascular: Reports: Dyspnea on Exertion. Denies: Edema, Palpitations, PND, Syncope Endocrine: Reports: No Symptoms GI/Abdominal: Reports: No Symptoms : Reports: No Symptoms Musculoskeletal: Reports: No Symptoms Skin: Reports: No Symptoms Neurological: Reports: No Symptoms Psychiatric: Reports: Other (chronic depression/ anxiety) Hematologic/Lymphatic: Reports: No Symptoms Immunologic: Reports: No Symptoms ED EXAM, GENERAL - Physical Exam Exam: See Below Exam Limited By: No Limitations General Appearance: Alert, Anxious, Mild Distress Eye Exam: Bilateral Eye: EOMI, PERRL Ears: Normal External Exam, Normal Canal, Hearing Grossly Normal, Normal TMs Ear Exam: Bilateral Ear: TM normal Nose: Normal Inspection, Normal Mucosa, No Blood Throat/Mouth: Normal Inspection, Normal Lips, Normal Teeth, Normal Gums, Normal Oropharynx, Normal Voice, No Airway Compromise, Other (dentures on top. edentulous on bottom) Head: Atraumatic, Normocephalic Neck: Normal Inspection, Supple, Non-Tender, Full Range of Motion Respiratory/Chest: No Accessory Muscle Use, Chest Non-Tender, Decreased Breath Sounds (diminished breath sounds throughout entire left lung field as well as RML and RLL. ). No: Crackles, Rales, Rhonchi, Wheezing, Accessory Muscle Use, Retractions Cardiovascular: Regular Rate, Rhythm, No Edema, No JVD, No Murmur Peripheral Pulses: 2+: Posterior Tibial (L), Posterior Tibial (R), Dorsalis Pedis (L), Dorsalis Pedis (R) GI/Abdominal: Soft, Non-Tender (Female) Exam: Deferred Rectal (Female) Exam: Deferred Back Exam: Full Range of Motion Extremities: Normal Inspection, Normal Range of Motion, Non-Tender, No Pedal Edema Neurological: Alert, Oriented, Normal Cognition Psychiatric: Anxious Skin Exam: Warm, Dry, Intact, No Rash Lymphatic: No Adenopathy #1 Interpretation EKG Date: 06/10/21 Rhythm: NSR Rate (Beats/Min): 84 [place]: LAD-Left [place] Deviation P-Wave: Present QRS: Normal ST-T: Normal QT: Normal CA/PQ Interval: 0.16 Comparison: No Change EKG Interpretation Comments: normal EKG with no ischemic change noted Course - Vital Signs Last Recorded V/S: Last Vital Signs Temp 97.7 F 06/10/21 18:08 Pulse 93 06/10/21 20:07 Resp 18 06/10/21 20:07 BP 121/72 06/10/21 20:07 Pulse Ox 97 06/10/21 20:07 - Orders/Labs/Meds Orders: Active Orders 24 hr Category Date Time Status Oxygen Therapy [RC] PRN Care 06/10/21 17:34 Active Peripheral IV Care [RC] . DIRECTED Care 06/10/21 17:35 Active Pulse Oximetry [RC] CONTINUOUS Care 06/10/21 17:34 Active RT Aerosol Therapy [RC] ASDIRECTED Care 06/10/21 17:37 Active Nothing per Oral Now Diet [DIET] Diet 06/10/21 Breakfast Active Chest 1V Frontal [CR] Stat Exams 06/10/21 17:34 Taken Chest PE [Ang Chest] [CT] Stat Exams 06/10/21 18:38 Taken Sodium Chloride 0.9% [Saline Flush] Med 06/10/21 17:34 Active 10 ml FLUSH ASDIRECTED PRN Peripheral IV Insertion Adult [OM.PC] Urgent Oth 06/10/21 17:34 Ordered Medication Orders Sodium Chloride (Sodium Chloride 0.9% 10 Ml Syringe) 10 ml FLUSH ASDIRECTED PRN PRN Reason: Keep Vein Open Labs: Laboratory Tests 06/10/21 06/10/21 06/10/21 Range/Units 17:45 17:53 17:53 WBC 5.2 (4.0-10.2) K/uL RBC 3.99 (3.77-5.09) M/uL Hgb 11.2 L (11.7-15.5) g/dL Hct 36.2 (34.0-46.0) % MCV 90.7 D (84.0-98.0) fL MCH 28.1 L (28.2-33.3) pg MCHC 30.9 L (31.7-36.0) g/dL RDW 13.5 (11.2-14.1) % Plt Count 242 D (150-350) K/uL Neut % (Auto) 80.9 H (45.0-80.0) % Lymph % (Auto) 13.1 (10.0-50.0) % [place] % (Auto) 5.8 (2.0-14.0) % Eos % (Auto) 0.0 (0.0-5.0) % Baso % (Auto) 0.2 (0.0-2.0) % Neut # (Auto) 4.19 (1.40-7.00) K/uL Lymph # (Auto) 0.68 (0.50-3.50) K/uL [place] # (Auto) 0.30 (0.00-1.00) K/uL Eos # (Auto) 0.00 (0.00-0.50) K/uL Baso # (Auto) 0.01 (0.00-0.20) K/uL D-Dimer, Quantitative 1100 H (0-400) ng/mL POC ABG pH (7.35-7.45) pH POC ABG pCO2 (35-48) mmHg POC ABG pO2 (83-108) mmHg POC ABG HCO3 (22-26) mmol/L POC ABG Total CO2 (23-27) mmol/L POC ABG O2 Sat (95-98) % POC ABG Base Excess (-2-3) mmol/L O2 Delivery Device Oxygen Flow Rate Sodium (136-145) mmol/L Potassium (3.5-5.1) mmol/L Chloride (98-107) mmol/L Carbon Dioxide (21.0-32.0) mmol/L Anion Gap (7-15) meq/L BUN (7-18) mg/dL Creatinine (0.51-1.17) mg/dL Est Cr Clr Drug Dosing Estimated GFR (MDRD) mL/min Glucose (70-99) mg/dL Calcium (8.5-10.1) mg/dL Magnesium (1.8-2.4) mg/dL Total Bilirubin (0.2-1.0) mg/dL AST (15-37) U/L ALT (12-78) U/L Alkaline Phosphatase (46-116) IU/L Troponin I High Sens (<=51) ng/L Total Protein (6.4-8.2) g/dL Albumin (3.4-5.0) g/dL Influenza Type A RNA Negative (NEGATIVE) RSV RNA (INAAT) Negative (NEGATIVE) Influenza Type B RNA Negative (NEGATIVE) SARS-CoV-2 RNA (KEILY) Negative (NEGATIVE) 06/10/21 06/10/21 06/10/21 Range/Units 17:53 17:53 18:33 WBC (4.0-10.2) K/uL RBC (3.77-5.09) M/uL Hgb (11.7-15.5) g/dL Hct (34.0-46.0) % MCV (84.0-98.0) fL MCH (28.2-33.3) pg MCHC (31.7-36.0) g/dL RDW (11.2-14.1) % Plt Count (150-350) K/uL Neut % (Auto) (45.0-80.0) % Lymph % (Auto) (10.0-50.0) % [place] % (Auto) (2.0-14.0) % Eos % (Auto) (0.0-5.0) % Baso % (Auto) (0.0-2.0) % Neut # (Auto) (1.40-7.00) K/uL Lymph # (Auto) (0.50-3.50) K/uL [place] # (Auto) (0.00-1.00) K/uL Eos # (Auto) (0.00-0.50) K/uL Baso # (Auto) (0.00-0.20) K/uL D-Dimer, Quantitative (0-400) ng/mL POC ABG pH 7.4 (7.35-7.45) pH POC ABG pCO2 50 H (35-48) mmHg POC ABG pO2 80 L (83-108) mmHg POC ABG HCO3 31.9 H (22-26) mmol/L POC ABG Total CO2 32.2 H (23-27) mmol/L POC ABG O2 Sat 95.6 (95-98) % POC ABG Base Excess 6 H (-2-3) mmol/L O2 Delivery Device Nasal cannula Oxygen Flow Rate 1 Sodium 140 (136-145) mmol/L Potassium 4.3 (3.5-5.1) mmol/L Chloride 103 (98-107) mmol/L Carbon Dioxide 30.6 (21.0-32.0) mmol/L Anion Gap 6.4 L (7-15) meq/L BUN 8 (7-18) mg/dL Creatinine 0.60 (0.51-1.17) mg/dL Est Cr Clr Drug Dosing TNP Estimated GFR (MDRD) > 60 mL/min Glucose 148 H (70-99) mg/dL Calcium 8.9 (8.5-10.1) mg/dL Magnesium 2.2 (1.8-2.4) mg/dL Total Bilirubin 0.3 (0.2-1.0) mg/dL AST 22 (15-37) U/L ALT 19 (12-78) U/L Alkaline Phosphatase 61 (46-116) IU/L Troponin I High Sens 9 (<=51) ng/L Total Protein 7.2 (6.4-8.2) g/dL Albumin 3.2 L (3.4-5.0) g/dL Influenza Type A RNA (NEGATIVE) RSV RNA (INAAT) (NEGATIVE) Influenza Type B RNA (NEGATIVE) SARS-CoV-2 RNA (KEILY) (NEGATIVE) Meds: Medications Generic Name Dose Route Start Last Admin Trade Name Freq PRN Reason Stop Dose Admin Sodium Chloride 10 ml 06/10/21 17:34 Sodium Chloride 0.9% 10 Ml Syringe FLUSH ASDIRECTED PRN Keep Vein Open Discontinued Medications Generic Name Dose Route Start Last Admin Trade Name Freq PRN Reason Stop Dose Admin Albuterol/Ipratropium 3 ml 06/10/21 17:37 06/10/21 18:46 Albuterol/Ipratropium 3.0-0.5 Mg/3 Ml Neb Soln NEB 06/10/21 17:38 3 ml ONETIME ONE Administration Iopamidol 100 ml 06/10/21 18:44 06/10/21 19:14 Iopamidol 755 Mg/Ml 100 Ml Bottle IVPUSH 06/10/21 18:45 100 ml ONETIME ONE Administration - Re-Assessments/Exams Free Text/Narrative Re-Assessment/Exam: 06/10/21 17:59 met at bedside. O2 sats 97-99% at rest on 1L supplemental oxygen. with talking and activity they drop to mid to high 80s. labs, CXR, and covid/rsv/influenza swab ordered. duo-neb x1 06/10/21 18:39 d dimer 1100. no previous from covid positive to compare with. will need CT PE protocol to rule out PE. WBC WNL. other labs pending. CXR: emphysematous change. no obvious opacities. 06/10/21 19:47 afebrile and hemodynamically stable. mild hypercapnia and hypoxia on ABG/. awaiting results of CTA chest to rule out PE 06/10/21 20:36 CTA negative for PE. positive for 1.8 x 1.4 cm irregular central left upper lobe pulmonary nodule/opacity. Departure - Departure Time of Disposition: 20:41 Disposition: Home, Self-Care 01 Condition: Fair Clinical Impression: Severe chronic obstructive pulmonary disease, Physical deconditioning, Pul monary nodule 1 cm or greater in diameter COPD (chronic obstructive pulmonary disease) Qualifiers: COPD type: unspecified COPD Qualified Code(s): J44.9 - Chronic obstructive pulmonary disease, unspecified - Discharge Information *PRESCRIPTION DRUG MONITORING PROGRAM REVIEWED*: Not Applicable *COPY OF PRESCRIPTION DRUG MONITORING REPORT IN PATIENT YAMILET: Not Applicable Referrals: Eugene Willett PA [Primary Care Provider] - Forms: ED Department Discharge Additional Instructions: -Continue current home oxygen -Discontinue dexamethasone -Scheduled duo nebs 3 times daily - refer to pulmonary nodule clinic for evaluation of nodule/opacity - follow up with PCP in one week Sepsis Event Note (ED) - Focused Exam Vital Signs: Vital Signs Temp Pulse Resp BP Pulse Ox Pulse Ox 06/10/21 20:07 93 18 121/72 97 06/10/21 18:45 85 22 H 133/78 94 L 06/10/21 18:30 79 25 H 117/72 94 L 06/10/21 18:08 97.7 F 85 22 H 136/83 96 06/10/21 17:40 85 22 H 115/75 92 L 06/10/21 17:30 97 06/10/21 17:16 97 - Problem List Review Problem List Initiated/Reviewed/Updated: Yes - My Orders Last 24 Hours: My Active Orders 06/10/21 Breakfast Nothing per Oral Now Diet [DIET] 06/10/21 17:34 Oxygen Therapy [RC] PRN Pulse Oximetry [RC] CONTINUOUS Chest 1V Frontal [CR] Stat Sodium Chloride 0.9% [Saline Flush] 10 ml FLUSH ASDIRECTED PRN Peripheral IV Insertion Adult [OM.PC] Urgent 06/10/21 17:35 Peripheral IV Care [RC] . DIRECTED 06/10/21 17:37 RT Aerosol Therapy [RC] ASDIRECTED 06/10/21 18:38 Chest PE [Ang Chest] [CT] Stat - Assessment/Plan Last 24 Hours: My Active Orders 06/10/21 Breakfast Nothing per Oral Now Diet [DIET] 06/10/21 17:34 Oxygen Therapy [RC] PRN Pulse Oximetry [RC] CONTINUOUS Chest 1V Frontal [CR] Stat Sodium Chloride 0.9% [Saline Flush] 10 ml FLUSH ASDIRECTED PRN Peripheral IV Insertion Adult [OM.PC] Urgent 06/10/21 17:35 Peripheral IV Care [RC] . DIRECTED 06/10/21 17:37 RT Aerosol Therapy [RC] ASDIRECTED 06/10/21 18:38 Chest PE [Ang Chest] [CT] Stat Assessment:: COPD without exacerbation chronic respiratory failure with hypoxia and hypercapnia pulmonary nodule vs opacity generalized weakness and physical deconditioning secondary to recent COVID 19 - on presentation: afebrile, hemodynamically stable, on baseline oxygen of 2L to maintain saturation >88% - has not been using duo nebs, was prescribed dexamethasone 4mg daily for 5 days and not sleeping since - CTA chest: 1.8cm x 1.4cm irregular central left upper lobe pulmonary no dule/opacity. Plan: -Continue current home oxygen -Discontinue dexamethasone -Scheduled duo nebs 3 times daily - refer to pulmonary nodule clinic for evaluation of nodule/opacity - follow up with PCP in one week
[2021-06-10 18:22] LABS: ANION GAP 6.4 meq/L (7-15); CHLORIDE,CL 103 mmol/L (98-107); SODIUM,NA 140 mmol/L (136-145)
[2021-06-10 18:27] LABS: CORONAVIRUS COVID-19 NAA NEGATIVE (NEGATIVE); RESPIRATORY SYNCYTIAL VIR NAA NEGATIVE (NEGATIVE)
[2021-06-10 18:37] LABS: PCO2 ARTERIAL,POC 50 mmHg (35-48)
[2021-06-10] MEDS ORDERED: Iopamidol 755 Mg/ML 100 ML Bottle IVPUSH ONE (18:44)
[2021-06-10 20:09] VITALS: BP 121/72; PULSE 93
== END 2021-06-10 21:05 | disposition home or self-care (01) ==
LOC: LL.ED 17:16
DX: J44.9 Chronic obstructive pulmonary disease, unspecified (principal); I10 Essential (primary) hypertension; K21.9 Gastro-esophageal reflux disease without esophagitis; Z86.16 Personal history of COVID-19; Z79.899 Other long term (current) drug therapy; Z88.0 Allergy status to penicillin; Z20.822 Contact with and (suspected) exposure to COVID-19; Z87.891 Personal history of nicotine dependence
CPT/HCPCS: 0241U; 36600; 71045; 71275; 80053; 82803; 83735; 84484; 85025; 85379; 93005; 93010; 94640; 94761; 99284; 99285-25; J7620-GY; Q9967

== ENCOUNTER 2022-08-26 18:39 | Inpatient (IN) | payer MEDICARE, MEDICAID ==
[2022-08-26] MEDS ORDERED: Albuterol/Ipratropium 3.0-0.5 MG/3 ML Neb Soln NEB ONE (18:44)
[2022-08-26] MEDS ORDERED: Magnesium Sulfate/Water 2 GM in Premix Bag 1 BAG IV ONE (18:47)
[2022-08-26] MEDS ORDERED: methylPREDNISolone Sodium Succinate 40 MG/1 ML SDV IVPUSH ONE (18:50)
[2022-08-26] MEDS: Sodium Chloride 0.9% 10 ML Syringe FLUSH PRN (19:03)
[2022-08-26 19:24] LABS: CHLORIDE,CL 94 mmol/L (98-107); SODIUM,NA 134 mmol/L (136-145)
[2022-08-26 19:25] LABS: ANION GAP 4.8 meq/L (7-15); ESTIMATED GFR 101 mL/min (>=60)
[2022-08-26 19:34] LABS: CORONAVIRUS COVID-19 NAA NEGATIVE (NEGATIVE); RESPIRATORY SYNCYTIAL VIR NAA NEGATIVE (NEGATIVE)
[2022-08-26] MEDS ORDERED: Calcium Carbonate 750 MG Tab.Chew PO PRN (20:07)
[2022-08-26] MEDS ORDERED: Albuterol/Ipratropium 3.0-0.5 MG/3 ML Neb Soln NEB PRN (20:07)
[2022-08-26] MEDS ORDERED: Magnesium Hydroxide 400 MG/5 ML Susp 30 ML Cup PO PRN (20:07)
[2022-08-26] MEDS ORDERED: CLONAZEPAM 1 MG PO PRN (20:07)
[2022-08-26] MEDS: Formoterol/Mometasone 200-5 MCG 8.8 GM Inhaler IH SCH (21:02)
[2022-08-26] MEDS: Acetaminophen 325 MG Tab PO PRN (21:12)
[2022-08-26] MEDS: methylPREDNISolone Sodium Succinate 40 MG/1 ML SDV IVPUSH SCH (22:16)
[2022-08-27] MEDS: Albuterol 6.7 GM Inhaler INH PRN ×2 (06:18→19:36)
[2022-08-27] MEDS: Benzonatate 100 MG Cap PO SCH ×4 (06:48→17:06)
[2022-08-27] MEDS ORDERED: Ascorbic Acid 500 MG Tab PO SCH (08:00)
[2022-08-27] MEDS ORDERED: Cyanocobalamin (Vitamin B12) 1,000 MCG Tab PO SCH (08:00)
[2022-08-27] MEDS: Escitalopram 20 MG Tab PO SCH (08:28)
[2022-08-27] MEDS: Metoprolol Succinate 25 MG Tab.ER PO SCH (08:28)
[2022-08-27] MEDS: Nitrofurantoin Monohydrate/Macrocrystalline 100 MG Cap PO SCH ×2 (08:28→17:06)
[2022-08-27] MEDS: Formoterol/Mometasone 200-5 MCG 8.8 GM Inhaler IH SCH ×2 (08:31→19:36)
[2022-08-27] MEDS: methylPREDNISolone Sodium Succinate 40 MG/1 ML SDV IVPUSH SCH ×2 (08:34→19:41)
[2022-08-27] MEDS: Sodium Chloride 0.9% 10 ML Syringe FLUSH PRN ×2 (08:40→19:41)
[2022-08-27] MEDS: Tiotropium Bromide 4 GM Inhalation Spray (2.5mcg/1 dose; 10 doses) INH SCH (12:27)
[2022-08-27] MEDS: Acetaminophen 325 MG Tab PO PRN (17:06)
[2022-08-27] MEDS: ClonazePAM 0.5 MG Tab PO PRN (20:24)
[2022-08-28] MEDS: methylPREDNISolone Sodium Succinate 40 MG/1 ML SDV IVPUSH SCH ×2 (08:54→19:38)
[2022-08-28] MEDS: Metoprolol Succinate 25 MG Tab.ER PO SCH (08:54)
[2022-08-28] MEDS: Albuterol 6.7 GM Inhaler INH PRN ×2 (08:55→12:39)
[2022-08-28] MEDS: Nitrofurantoin Monohydrate/Macrocrystalline 100 MG Cap PO SCH ×2 (08:55→17:38)
[2022-08-28] MEDS: Benzonatate 100 MG Cap PO SCH ×3 (08:55→17:38)
[2022-08-28] MEDS: Escitalopram 20 MG Tab PO SCH (08:55)
[2022-08-28] MEDS: Formoterol/Mometasone 200-5 MCG 8.8 GM Inhaler IH SCH ×2 (08:56→19:51)
[2022-08-28] MEDS: Sodium Chloride 0.9% 10 ML Syringe FLUSH PRN ×2 (09:02→19:35)
[2022-08-28] MEDS: ClonazePAM 0.5 MG Tab PO PRN ×2 (09:16→21:18)
[2022-08-28] MEDS: Tiotropium Bromide 4 GM Inhalation Spray (2.5mcg/1 dose; 10 doses) INH SCH (12:39)
[2022-08-28] MEDS: Budesonide 0.5 MG/2 ML Neb Susp NEB SCH (19:25)
[2022-08-29 07:55] LABS: ANION GAP 6.3 meq/L (7-15)
[2022-08-29] MEDS: methylPREDNISolone Sodium Succinate 40 MG/1 ML SDV IVPUSH SCH ×2 (08:08→19:21)
[2022-08-29] MEDS: Formoterol/Mometasone 200-5 MCG 8.8 GM Inhaler IH SCH ×2 (08:08→19:21)
[2022-08-29] MEDS: Nitrofurantoin Monohydrate/Macrocrystalline 100 MG Cap PO SCH ×2 (08:09→19:21)
[2022-08-29] MEDS: Budesonide 0.5 MG/2 ML Neb Susp NEB SCH ×2 (08:09→19:22)
[2022-08-29] MEDS: Metoprolol Succinate 25 MG Tab.ER PO SCH (08:10)
[2022-08-29] MEDS: Benzonatate 100 MG Cap PO SCH ×3 (08:10→19:21)
[2022-08-29] MEDS: Escitalopram 20 MG Tab PO SCH (08:12)
[2022-08-29] MEDS: Tiotropium Bromide 4 GM Inhalation Spray (2.5mcg/1 dose; 10 doses) INH SCH (12:43)
[2022-08-29] MEDS: ClonazePAM 0.5 MG Tab PO PRN (14:29)
[2022-08-29] MEDS: Sodium Chloride 0.9% 10 ML Syringe FLUSH PRN (19:23)
[2022-08-30] MEDS: Formoterol/Mometasone 200-5 MCG 8.8 GM Inhaler IH SCH (09:45)
[2022-08-30] MEDS: methylPREDNISolone Sodium Succinate 40 MG/1 ML SDV IVPUSH SCH (09:45)
[2022-08-30] MEDS: Nitrofurantoin Monohydrate/Macrocrystalline 100 MG Cap PO SCH (09:46)
[2022-08-30] MEDS: Benzonatate 100 MG Cap PO SCH ×2 (09:46→11:30)
[2022-08-30] MEDS: Metoprolol Succinate 25 MG Tab.ER PO SCH (09:46)
[2022-08-30] MEDS: Escitalopram 20 MG Tab PO SCH (09:46)
[2022-08-30] MEDS: Budesonide 0.5 MG/2 ML Neb Susp NEB SCH (09:47)
[2022-08-30 09:53] VITALS: BP 136/66; PULSE 105
[2022-08-30] MEDS: ClonazePAM 0.5 MG Tab PO PRN (11:30)
[2022-08-30] MEDS: Tiotropium Bromide 4 GM Inhalation Spray (2.5mcg/1 dose; 10 doses) INH SCH (11:30)
== END 2022-08-30 11:45 | disposition swing bed (61) | DRG 191 ==
LOC: LL.ED 18:39 → LL.MS 19:59
PROVIDERS: ADMIT Emergency Medicine; ATTEND Emergency Medicine
DX: J44.1 Chronic obstructive pulmonary disease with (acute) exacerbation (principal); N30.00 Acute cystitis without hematuria; R09.02 Hypoxemia; F41.9 Anxiety disorder, unspecified; I10 Essential (primary) hypertension; G47.33 Obstructive sleep apnea (adult) (pediatric); K59.09 Other constipation; K21.9 Gastro-esophageal reflux disease without esophagitis; G43.909 Migraine, unspecified, not intractable, without status migrainosus; F32.A Depression, unspecified; G62.9 Polyneuropathy, unspecified; M19.90 Unspecified osteoarthritis, unspecified site; D69.6 Thrombocytopenia, unspecified; G89.29 Other chronic pain; M81.0 Age-related osteoporosis without current pathological fracture; Z88.0 Allergy status to penicillin; Z79.51 Long term (current) use of inhaled steroids; Z79.899 Other long term (current) drug therapy; Z91.199 Patient's noncompliance with other medical treatment and regimen due to unspecified reason; Z99.81 Dependence on supplemental oxygen; Z90.89 Acquired absence of other organs; Z98.890 Other specified postprocedural states; Z82.49 Family history of ischemic heart disease and other diseases of the circulatory system; Z81.8 Family history of other mental and behavioral disorders
CPT/HCPCS: 0241U; 36415; 71045; 71046; 80053; 81001; 83605; 85025; 87086; 87088; 87186; 93005; 93010; 94640; 97161-GP; 97164-GP; 99285; A9270-GY; J2920; J3475; J3490; J7620-GY

== ENCOUNTER 2022-08-30 10:02 | Inpatient (IN) | payer MEDICARE, MEDICAID ==
[2022-08-30] MEDS ORDERED: Calcium Carbonate 750 MG Tab.Chew PO PRN (11:03)
[2022-08-30] MEDS ORDERED: Acetaminophen 325 MG Tab PO PRN (11:03)
[2022-08-30] MEDS ORDERED: Magnesium Hydroxide 400 MG/5 ML Susp 30 ML Cup PO PRN (11:03)
[2022-08-30] MEDS ORDERED: Sodium Chloride 0.9% 10 ML Syringe FLUSH PRN (11:03)
[2022-08-30] MEDS ORDERED: Albuterol/Ipratropium 3.0-0.5 MG/3 ML Neb Soln NEB PRN (11:03)
[2022-08-30] MEDS ORDERED: Albuterol 6.7 GM Inhaler INH PRN (11:03)
[2022-08-30] MEDS: Benzonatate 100 MG Cap PO SCH ×2 (11:52→18:27)
[2022-08-30] MEDS: Tiotropium Bromide 4 GM Inhalation Spray (2.5mcg/1 dose; 10 doses) INH SCH (11:52)
[2022-08-30] MEDS: Nitrofurantoin Monohydrate/Macrocrystalline 100 MG Cap PO SCH (18:27)
[2022-08-30] MEDS: methylPREDNISolone Sodium Succinate 40 MG/1 ML SDV IVPUSH SCH (19:21)
[2022-08-30] MEDS: Sodium Chloride 0.9% 10 ML Syringe FLUSH PRN (19:22)
[2022-08-30] MEDS: Budesonide 0.5 MG/2 ML Neb Susp NEB SCH (19:24)
[2022-08-30] MEDS: Formoterol/Mometasone 200-5 MCG 8.8 GM Inhaler IH SCH (19:24)
[2022-08-30] MEDS: ClonazePAM 0.5 MG Tab PO PRN (19:35)
[2022-08-31] MEDS: Formoterol/Mometasone 200-5 MCG 8.8 GM Inhaler IH SCH ×2 (08:10→19:44)
[2022-08-31] MEDS: Nitrofurantoin Monohydrate/Macrocrystalline 100 MG Cap PO SCH ×2 (08:12→17:12)
[2022-08-31] MEDS: Metoprolol Succinate 25 MG Tab.ER PO SCH (08:13)
[2022-08-31] MEDS: Escitalopram 20 MG Tab PO SCH (08:13)
[2022-08-31] MEDS: Budesonide 0.5 MG/2 ML Neb Susp NEB SCH ×2 (08:14→19:45)
[2022-08-31] MEDS: Benzonatate 100 MG Cap PO SCH ×3 (08:14→17:12)
[2022-08-31] MEDS: methylPREDNISolone Sodium Succinate 40 MG/1 ML SDV IVPUSH SCH (08:15)
[2022-08-31] MEDS: Sodium Chloride 0.9% 10 ML Syringe FLUSH PRN (08:16)
[2022-08-31] MEDS: Tiotropium Bromide 4 GM Inhalation Spray (2.5mcg/1 dose; 10 doses) INH SCH (12:04)
[2022-08-31] MEDS: ClonazePAM 0.5 MG Tab PO PRN (12:40)
[2022-09-01] MEDS: Formoterol/Mometasone 200-5 MCG 8.8 GM Inhaler IH SCH ×2 (09:03→19:31)
[2022-09-01] MEDS: Escitalopram 20 MG Tab PO SCH (09:03)
[2022-09-01] MEDS: Budesonide 0.5 MG/2 ML Neb Susp NEB SCH ×3 (09:03→20:48)
[2022-09-01] MEDS: Nitrofurantoin Monohydrate/Macrocrystalline 100 MG Cap PO SCH (09:03)
[2022-09-01] MEDS: Metoprolol Succinate 25 MG Tab.ER PO SCH (09:03)
[2022-09-01] MEDS: Benzonatate 100 MG Cap PO SCH ×3 (09:04→17:46)
[2022-09-01] MEDS: Tiotropium Bromide 4 GM Inhalation Spray (2.5mcg/1 dose; 10 doses) INH SCH (11:56)
[2022-09-01] MEDS: ClonazePAM 0.5 MG Tab PO PRN (20:48)
[2022-09-02] MEDS: Metoprolol Succinate 25 MG Tab.ER PO SCH (08:04)
[2022-09-02] MEDS: Budesonide 0.5 MG/2 ML Neb Susp NEB SCH ×2 (08:05→19:35)
[2022-09-02] MEDS: Escitalopram 20 MG Tab PO SCH (08:05)
[2022-09-02] MEDS: Benzonatate 100 MG Cap PO SCH ×3 (08:05→17:33)
[2022-09-02] MEDS: Formoterol/Mometasone 200-5 MCG 8.8 GM Inhaler IH SCH ×2 (08:08→19:35)
[2022-09-02] MEDS: Tiotropium Bromide 4 GM Inhalation Spray (2.5mcg/1 dose; 10 doses) INH SCH (12:16)
[2022-09-02] MEDS: ClonazePAM 0.5 MG Tab PO PRN (19:35)
[2022-09-03] MEDS: Escitalopram 20 MG Tab PO SCH (07:54)
[2022-09-03] MEDS: Formoterol/Mometasone 200-5 MCG 8.8 GM Inhaler IH SCH ×2 (07:54→20:59)
[2022-09-03] MEDS: Budesonide 0.5 MG/2 ML Neb Susp NEB SCH ×2 (07:55→20:59)
[2022-09-03] MEDS: Benzonatate 100 MG Cap PO SCH ×3 (07:55→17:24)
[2022-09-03] MEDS: Metoprolol Succinate 25 MG Tab.ER PO SCH (07:56)
[2022-09-03] MEDS: Tiotropium Bromide 4 GM Inhalation Spray (2.5mcg/1 dose; 10 doses) INH SCH (12:03)
[2022-09-03] MEDS: ClonazePAM 0.5 MG Tab PO PRN (14:53)
[2022-09-04 07:27] VITALS: BP 95/53; PULSE 85
[2022-09-04] MEDS: Formoterol/Mometasone 200-5 MCG 8.8 GM Inhaler IH SCH (07:42)
[2022-09-04] MEDS: Budesonide 0.5 MG/2 ML Neb Susp NEB SCH (07:42)
[2022-09-04] MEDS: Escitalopram 20 MG Tab PO SCH (07:44)
[2022-09-04] MEDS: Benzonatate 100 MG Cap PO SCH ×2 (07:44→11:41)
[2022-09-04] MEDS: Metoprolol Succinate 25 MG Tab.ER PO SCH (07:53)
[2022-09-04] MEDS: Tiotropium Bromide 4 GM Inhalation Spray (2.5mcg/1 dose; 10 doses) INH SCH (11:41)
[2022-09-04] MEDS: ClonazePAM 0.5 MG Tab PO PRN (14:21)
[2022-09-04] MEDS ORDERED: Take Home: Albuterol 6.7 GM Inhaler, 1 Inhaler Pack INH PRN (15:21)
[2022-09-04] MEDS ORDERED: Calcium Carbonate 750 MG Tab.Chew PO PRN (15:21)
[2022-09-04] MEDS ORDERED: Albuterol/Ipratropium 3.0-0.5 MG/3 ML Neb Soln NEB PRN (15:21)
[2022-09-04] MEDS ORDERED: Acetaminophen 325 MG Tab PO PRN (15:21)
[2022-09-04] MEDS ORDERED: CLONAZEPAM 1 MG PO PRN (15:21)
[2022-09-04] MEDS ORDERED: Magnesium Hydroxide 400 MG/5 ML Susp 30 ML Cup PO PRN (15:21)
[2022-09-04] MEDS ORDERED: Non-Formulary Medication 1 Each (Fluticasone/Salmeterol 14 PUFF/DISKUS Diskus) INH SCH (20:00)
[2022-09-05] MEDS ORDERED: Escitalopram 20 MG Tab PO SCH (08:00)
[2022-09-05] MEDS ORDERED: Metoprolol Succinate 25 MG Tab.ER PO SCH (08:00)
[2022-09-05] MEDS ORDERED: Non-Formulary Medication 1 Each (Tiotropium [Spiriva Handihaler] 18 MCG Cap) INH SCH (12:00)
== END 2022-09-04 16:23 | disposition home or self-care (01) | DRG 191 ==
LOC: LL.MS 11:48
PROVIDERS: ADMIT Emergency Medicine; ATTEND Emergency Medicine
DX: J44.9 Chronic obstructive pulmonary disease, unspecified (principal); N30.00 Acute cystitis without hematuria; R53.81 Other malaise; R26.9 Unspecified abnormalities of gait and mobility; I95.9 Hypotension, unspecified
CPT/HCPCS: 94640; 97110-GO; 97162-GP; 97165-GO; 97530-GP; 97535-GO; 99315; A9270-GY; J2920; J3490

== ENCOUNTER 2022-11-27 16:07 | Emergency (ER) | payer MEDICARE, MEDICAID ==
[2022-11-27] MEDS ORDERED: Sodium Chloride 0.9% 10 ML Syringe FLUSH PRN (16:10)
[2022-11-27 16:46] LABS: BILIRUBIN,URINE NEGATIVE (NEGATIVE); COLOR,URINE YELLOW; GLUCOSE,URINE NEGATIVE (NEGATIVE); KETONES,URINE NEGATIVE (NEGATIVE); LEUKOCYTE ESTERASE,URINE NEGATIVE (NEGATIVE); NITRITE,URINE NEGATIVE (NEGATIVE); OCCULT BLOOD,URINE NEGATIVE (NEGATIVE); PROTEIN,URINE NEGATIVE (NEGATIVE); UROBILINOGEN,URINE 0.2 E.U./dL (0.2-1.0)
[2022-11-27 16:47] LABS: APPEARANCE,URINE SLIGHTLY CLOUDY
[2022-11-27 17:00] LABS: EOSINOPHILS ABSOLUTE AUTO 0.01 K/uL (0.00-0.50); EOSINOPHILS PERCENT AUTO 0.3 % (0.0-5.0); LYMPHOCYTES ABSOLUTE AUTO 0.73 K/uL (0.50-3.50); LYMPHOCYTES PERCENT AUTO 21.3 % (10.0-50.0); MEAN CORPUSCULAR HGB CONC 29.7 g/dL (31.7-36.0); MEAN CORPUSCULAR VOLUME 97.6 fL (84.0-98.0); MONOCYTES ABSOLUTE AUTO 0.45 K/uL (0.00-1.00); MONOCYTES PERCENT AUTO 13.1 % (2.0-14.0); NEUTROPHILS ABSOLUTE AUTO 2.24 K/uL (1.40-7.00); NEUTROPHILS PERCENT AUTO 65.3 % (45.0-80.0); PLATELET COUNT,PLT 117 K/uL (150-350); RED BLOOD CELL COUNT 3.79 M/uL (3.77-5.09); WHITE BLOOD CELL COUNT,WBC 3.4 K/uL (4.0-10.2)
[2022-11-27 17:08] LABS: BICARBONATE,VENOUS 40 mmol/L (23-28); O2 DELIVERY DEVICE NASAL CANNULA; O2 SATURATION VENOUS 56 %; PCO2 VENOUS 85 mmHG (41-51); PH,VENOUS 7.28 (7.31-7.41); PO2 VENOUS 35 mmHG
[2022-11-27 17:09] LABS: BASE EXCESS VENOUS 10 mmol/L ((-2)-3)
[2022-11-27 17:22] LABS: ALANINE AMINOTRANSFERASE,ALT 18 U/L (12-78); ALBUMIN 3.1 g/dL (3.4-5.0); ALKALINE PHOSPHATASE 56 IU/L (46-116); ASPARTATE AMNIOTRANSFERASE,AST 17 U/L (15-37); BILIRUBIN TOTAL 0.3 mg/dL (0.2-1.0); BLOOD UREA NITROGEN,BUN 8 mg/dL (7-18); CALCIUM 8.7 mg/dL (8.5-10.1); CHLORIDE,CL 100 mmol/L (98-107); CREATININE 0.47 mg/dL (0.51-1.17); GLUCOSE RANDOM 109 mg/dL (70-99); POTASSIUM,K 4.5 mmol/L (3.5-5.1); SODIUM,NA 140 mmol/L (136-145)
[2022-11-27 17:26] LABS: ANION GAP 1.6 meq/L (7-15); CARBON DIOXIDE,CO2 42.9 mmol/L (21.0-32.0); ESTIMATED GFR 102 mL/min (>=60)
[2022-11-27 17:33] LABS: INR 0.9; PROTHROMBIN TIME 9.2 SEC (9.0-11.1)
[2022-11-27 18:41] LABS: CORONAVIRUS COVID-19 NAA NEGATIVE (NEGATIVE); INFLUENZA A NAA NEGATIVE (NEGATIVE); INFLUENZA B NAA NEGATIVE (NEGATIVE); RESPIRATORY SYNCYTIAL VIR NAA NEGATIVE (NEGATIVE)
[2022-11-27] MEDS: LORazepam 0.5 MG Tab PO ONE (18:55)
[2022-11-27 19:34] VITALS: BP 146/79; PULSE 89
== END 2022-11-27 19:40 | disposition home or self-care (01) ==
LOC: LL.ED 16:07
DX: R06.02 Shortness of breath (principal); F41.9 Anxiety disorder, unspecified; I10 Essential (primary) hypertension; J44.9 Chronic obstructive pulmonary disease, unspecified; Z88.0 Allergy status to penicillin; Z20.822 Contact with and (suspected) exposure to COVID-19
CPT/HCPCS: 0241U; 36415; 71046; 80053; 81003; 82803; 85025; 85610; 99284; 99285; A9270-GY